=== PATIENT | female | born 1955 | race Caucasian/White ===

== ENCOUNTER 2021-05-04 11:12 | Day surgery (SDC) | payer MEDICARE, OTHER ==
[2021-05-04 12:03] VITALS: TEMP 98.2
[2021-05-04] MEDS ORDERED: LIDOCAINE 1% (10MG/ML) FOR IV START INTRADERMA ONE (12:10)
[2021-05-04] MEDS ORDERED: LACTATED RINGERS 1,000 ML IV ONE (12:11)
[2021-05-04] MEDS ORDERED: PROPOFOL 10 MG/ML 20 ML VIAL IV ONE (13:14)
[2021-05-04] MEDS ORDERED: LIDOCAINE 1% INJ 10MG/ML (20 ML MDV) ONE (13:14)
--- NOTE | 2021-05-04 13:41 | P.PCN ---
Date of Procedure: 05/04/21 Procedure(s) Performed: Brief history: Patient is a pleasant 65-year-old white female scheduled for an elective upper endoscopy as well as colonoscopy as a part of evaluation of GERD and screening for colon cancer. Her sister was diagnosed with colon cancer at age 50. He was diagnosed with colon cancer at age 75 Procedure performed: Esophagogastroduodenoscopy with biopsy Colonoscopy and biopsy Preoperative diagnosis: GERD Screening for colon cancer and family history of colon cancer Anesthesia: MAC Procedure: After informed consent was obtained from the patient was brought into the endoscopy unit and IV sedation was administered by anesthesia under continuous monitoring. Initially upper endoscopy was done. The Olympus GF 160 video endoscope was inserted inserted into the mouth and esophagus intubated without any difficulty and was gradually advanced into the stomach and duodenum and carefully examined. The bulb and second part of the duodenum appeared normal. The scope was then withdrawn into the stomach adequately insufflated with air and upon careful examination the antrum and body, cardia and fundus appeared normal. The scope was then withdrawn into the esophagus. Small hiatal hernia noted. The GE junction was located at 40 cm to the incisors. It appeared regular linear erosions and thickening of the esophageal folds consistent with LA grade B reflux esophagitis. Biopsies were done from the distal esophagus to rule out eosinophilic esophagitis. Rest of the esophagus appeared normal. Patient tolerated the procedure well. At this time the patient continued to remain sedation. Initial digital rectal examination was normal. Olympus CF 160 video colonoscope was then inserted into the rectum and gradually advanced to the cecum without any difficulty. Careful examination was performed as the scope was gradually being withdrawn. The prep was excellent. The cecum, ascending colon appeared normal. In the transverse colon there was a 3 mm sessile polyp that was removed by cold biopsy. Rest of the, transverse colon, descending colon, sigmoid colon and rectum appeared normal. Diffuse diverticulosis seen. Retroflexion was performed in the rectum and no lesions were noted. Patient tolerated the procedure well. Impression: 1. Upper endoscopy revealed small hiatal hernia and linear erosions with thickened folds in the distal esophagus consistent with LA grade B reflux esophagitis 2. Colonoscopy revealed a 3 mm sessile transverse colon polyp status post biopsy and scattered diffuse diverticulosis Recommendations: Findings of this examination were discussed with the patient as well as her family. She was advised to follow with the biopsy results. She will be started on Prilosec 20 mg daily for reflux esophagitis. She was advised to have a repeat screening colonoscopy every 5 years because of the strong family history of colon cancer
[2021-05-04 13:54] VITALS: RESP 20
[2021-05-04 14:10] VITALS: BP 181/90; PULSE 71
[2021-05-04] MEDS ORDERED: ONDANSETRON ODT 4 MG TAB PO ONE (14:30)
== END 2021-05-04 14:45 | disposition home or self-care (01) ==
LOC: ORWHC2ENDO 11:12
PROVIDERS: ATTEND Internal Medicine Gastroenterology
DX: Z12.11 Encounter for screening for malignant neoplasm of colon (principal); K21.00 Gastro-esophageal reflux disease with esophagitis, without bleeding; Z80.0 Family history of malignant neoplasm of digestive organs; K57.90 Diverticulosis of intestine, part unspecified, without perforation or abscess without bleeding; G43.909 Migraine, unspecified, not intractable, without status migrainosus
CPT/HCPCS: 88305; 45380; 43239; J2001; J2704

== ENCOUNTER 2021-06-01 14:00 | Emergency (ER) | payer MEDICARE ==
[2021-06-01 14:17] VITALS: RESP 18
--- NOTE | 2021-06-01 15:17 | XR ---
EXAMINATION TYPE: XR chest 2V DATE OF EXAM: 06/01/2021 COMPARISON: NONE TECHNIQUE: PA and lateral views submitted. HISTORY: Shortness of breath FINDINGS: There is diffuse interstitial pattern with perihilar infiltrates and left lower lobe subsegmental are a of consolidation. No sizable pleural effusion or pneumothorax. Underlying COPD suspected. IMPRESSION: 1. Correlate for interstitial pneumonitis with superimposed right perihilar and lower lobe pneumonia.
[2021-06-01] MEDS ORDERED: SODIUM CHLORIDE 0.9% 1,000 ML IV STA (16:45)
[2021-06-01] MEDS ORDERED: KETOROLAC 15 MG/ML 1 ML VIAL IVP STA (16:45)
[2021-06-01] MEDS ORDERED: DEXAMETHASONE SOD PHOSPHATE 10 MG/ML 1 ML VIAL IVP STA (16:46)
[2021-06-01] MEDS ORDERED: ONDANSETRON 4 MG/2 ML VIAL IVP STA (16:46)
--- NOTE | 2021-06-01 17:16 | ED ---
General Adult HPI - General Chief complaint: Recheck/Abnormal Lab/Rx Stated complaint: COVID+,SOB Time Seen by Provider: 06/01/21 16:11 Source: patient Mode of arrival: ambulatory Limitations: no limitations - History of Present Illness Initial comments: This 65-year-old female presents in the emergency department after testing positive for COVID-19 on [id number]. Patient states her symptoms have worsened since testing positive. Patient states she is prescribed azithromycin which has not seemed to help. Patient states she has had chills, sweats, headache and body aches for the last week. Patient states she has decreased appetite but is still able to drink fluids. Patient denies chest pain or vomiting. She states she has episodes of mild SOB but is not experiencing now. Patient states she is here because she would like to receive the antibody infusion if she qualifies. - Related Data Previous Rx's Medication Instructions Recorded Dexamethasone 6 mg PO DAILY #9 tablet 06/01/21 Allergies Allergy/AdvReac Type Severity Reaction Status Date / Time No Known Allergies Allergy Verified 06/01/21 14:13 Review of Systems ROS Statement: Those systems with pertinent positive or pertinent negative responses have been documented in the HPI. ROS Other: All systems not noted in ROS Statement are negative. Past Medical History Past Medical History: No Reported History History of Any Multi-Drug Resistant Organisms: None Reported Past Surgical History: Hysterectomy, Orthopedic Surgery Past Psychological History: No Psychological Hx Reported Smoking Status: Never smoker Past Alcohol Use History: None Reported Past Drug Use History: None Reported General Exam Limitations: no limitations General appearance: alert, in no apparent distress Respiratory exam: Present: normal lung sounds bilaterally. Absent: respiratory distress, wheezes, rales, rhonchi, stridor Cardiovascular Exam: Present: regular rate, normal rhythm, normal heart sounds. Absent: systolic murmur, diastolic murmur, rubs, gallop, clicks GI/Abdominal exam: Present: soft, normal bowel sounds. Absent: distended, tenderness, guarding, rebound, rigid Extremities exam: Present: normal inspection Neurological exam: Present: alert, oriented X3, CN II-XII intact Psychiatric exam: Present: normal mood Skin exam: Present: warm, dry, intact, normal color. Absent: rash Course Vital Signs 06/01/21 06/01/21 06/01/21 14:14 18:35 18:58 Temperature 98 F 99.2 F Pulse Rate 98 85 82 Respiratory 18 18 18 Rate Blood Pressure 108/69 135/78 O2 Sat by Pulse 100 94 L 92 L Oximetry Medical Decision Making - Medical Decision Making This 65-year-old female presents to emergency department today after being diagnosed with Covid 19 on [id number]. Patient states she has had headache, fatigue, body aches over the last week. She states she is here today for the antibody infusion. After Zofran, Toradol, fluids, patient states her headache has subsided and she feels much better. Receiving Clomid antibody infusion, patient states she feels well. She denies SOB or chest pain. Oxygen remains above 90%. Given strict return precautions. Decadron given for home. Advised to get pulse oximeter into return to emergency department if oxygen is less than 90%, chest pain occurs, cannot keep down liquids or symptoms worsen. Patient's sent home in stable condition. - Lab Data Lab Results 06/01/21 Range/Units 14:18 Coronavirus (PCR) Detected A (Not Detectd) Disposition Clinical Impression: COVID-19 Disposition: HOME SELF-CARE Condition: Stable Additional Instructions: Return to emergency department if symptoms worsen. Advised to get pulse oximeter from [facility] into return to emergency department with oxygen readings less than 90%. Can take zinc, vitamin D vitamin C [id number]. PRIMARY care provider in next 1-2 days. Prescriptions: Dexamethasone 6 mg PO DAILY #9 tablet Is patient prescribed a controlled substance at d/c from ED?: No Referrals: Aleta Castro MD [Primary Care Provider] - 1-2 days Time of Disposition: 19:10
[2021-06-01] MEDS ORDERED: BAMLANIVIMAB (EUA) 700 MG, ETESEVIMAB (EUA) 1,400 MG in SODIUM CHLORIDE 0.9% 100 ML IVPB ONE (17:30)
[2021-06-01] MEDS ORDERED: SODIUM CHLORIDE 0.9% 50 ML IVPB ONE (17:30)
[2021-06-01 18:35] VITALS: BP 135/78; TEMP 99.2
[2021-06-01 19:00] VITALS: PULSE 82
== END 2021-06-01 19:23 | disposition home or self-care (01) ==
LOC: EC 14:00
DX: U07.1 COVID-19 (principal)
CPT/HCPCS: 87635; 71046; 99284; 96374; 96375 ×2; 96361 ×2; J1100; J2405; J1885; J3490

== ENCOUNTER → 2022-08-18 | Outpatient (CLI) | payer MEDICARE, OTHER ==
--- NOTE | 2022-08-19 07:44 | XR ---
EXAMINATION TYPE: XR cervical spine w flex/ext DATE OF EXAM: 08/18/2022 COMPARISON: NONE HISTORY: 66-year-old female M50.10 CERVICAL DISC DISORDER W RADICULOPATHY TECHNIQUE: 8 views including flexion and extension FINDINGS: Uncovertebral joint and facet arthropathy especially mid to lower cervical spine. On the left, changes result in mild bony neuroforaminal narrowing at C6-C7 and C7-T1. On the right, changes result in mild bony neuroforaminal narrowing at C3-C4. No predental space widening or prevertebral soft tissue swelling. Moderate disc/endplate degenerative change particularly at C5-C7 levels. Alignment shows straightening of the normal cervical lordosis b ut otherwise maintained. Flexion extension views are limited by overlying shoulders. No obvious dynamic subluxation with flexi on and extension though assessment of the C5-C6 level and below is very limited on the flexion view. Normal odontoid view. IMPRESSION: Moderate spondylotic changes especially C5-C7 levels. Mild bony neuroforaminal narrowing on the left at C6-7 and C7-T1 and mild on the right at C3-C4. No malalignment. No obvious dynamic subluxation tho ugh with some limitation due to overlying shoulders.
--- NOTE | 2022-08-21 09:54 | MR ---
EXAMINATION TYPE: MR cervical spine wo con DATE OF EXAM: 08/18/2022 INDICATION: Patient age:Female; 66 years old; Reason for study: M50.10 CERVICAL DISC DISORDER W RADICULOPATHY,. MIGRAINES, BROKEN NECK 1999 COMPARISON: Plain film 08/18/2022. TECHNIQUE: Multi planar, multi sequence imaging was performed utilizing: T1-weighted, T2-weighted, an d turbo inversion recovery imaging of the cervical spine. IV Contrast: None FINDINGS: Alignment: The cervical vertebral bodies have preserved heights. Alignment is within normal limits gi marquita patient positioning. Bones: Scattered Modic endplate changes with osteophytes and disc space narrowing. Multilevel degener ative disc disease is noted and most pronounced at the C4-C7 vertebral levels. Cord: The spinal cord is unremarkable with regards to their signal intensity and morphology. Discs: Multilevel disc desiccation is present. C2-C3: No significant disc pathology. The spinal canal is patent. No neural foraminal stenosis. C3-C4: A disc osteophyte complex is present which minimally narrows the ventral subarachnoid space. Bilateral facet and uncovertebral joint arthropathy are present with mild right neural foraminal killian nosis. The left neural foramen is patent. C4-C5: A disc osteophyte complex is present with mild spinal canal stenosis. Bilateral facet and unc overtebral joint arthropathy are present with moderate right and mild left neural foraminal stenosis. C5-C6: A disc osteophyte complex is present with mild spinal canal stenosis. Bilateral facet and unc overtebral joint arthropathy are present with mild bilateral neural foraminal stenosis. C6-C7: A disc osteophyte complex is present with mild spinal canal stenosis. Bilateral facet and unc overtebral joint arthropathy are present with mild bilateral neural foraminal stenosis. C7-T1: No significant disc pathology. The spinal canal is patent. No neural foraminal stenosis. Other: Left thyroid nodule measuring up to 15 mm. IMPRESSION: 1. No evidence for disc herniation or significant spinal canal stenosis. 2. Multilevel disc degeneration with associated osteoarthritic changes or C4-C5, C5-6 and C6-C7 with mild spinal canal stenosis disc osteophyte complexes and neural foraminal stenosis.
== END | disposition home or self-care (01) ==
LOC: RADMRIMAIN 17:39
PROVIDERS: ATTEND Neurological Surgery
DX: M47.22 Other spondylosis with radiculopathy, cervical region (principal); M50.10 Cervical disc disorder with radiculopathy, unspecified cervical region; M99.71 Connective tissue and disc stenosis of intervertebral foramina of cervical region
CPT/HCPCS: 72052; 72141

== ENCOUNTER 2023-05-04 11:32 | Day surgery (SDC) | payer MEDICARE, OTHER ==
[2023-05-02 11:37] VITALS: BMI 27.0
[~2023-05-04 11:32] MED LIST: LIDOCAINE 1% (10MG/ML) FOR IV START INTRADERMA PRN
[2023-05-04 13:05] VITALS: RESP 16; TEMP 98.4
[2023-05-04] MEDS: LACTATED RINGERS 1,000 ML IV SCH ×2 (13:05→13:58)
[2023-05-04] MEDS ORDERED: LIDOCAINE 1% INJ 10MG/ML (20 ML MDV) ONE (14:00)
[2023-05-04] MEDS ORDERED: PROPOFOL 10 MG/ML 20 ML VIAL IV ONE (14:00)
--- NOTE | 2023-05-04 14:16 | P.PCN ---
Date of Procedure: 05/04/23 Procedure(s) Performed: BRIEF HISTORY: Patient is a 67-year-old, pleasant, white female scheduled for an upper endoscopy as part of evaluation of GERD and intermittent dysphagia to solids for the last 3 months duration. She was adamant is a 40 mg daily but stopped taking it a few months ago for insurance reasons and since then her symptoms have been progressively getting worse.. PROCEDURE PERFORMED: Esophagogastroduodenoscopy with biopsy and dilation. PREOPERATIVE DIAGNOSIS: Long-standing history of GERD/Intermittent dysphagia for solids.. IV sedation per anesthesia. PROCEDURE: After informed consent was obtained, the patient was brought into the endoscopy unit. IV sedation was administered by Anesthesia under continuous monitoring. Initially the Olympus GIF-140 video endoscope was inserted into the mouth. Esophagus intubated without any difficulty. It was gradually advanced into the stomach and duodenum and carefully examined. The bulb and the second part of the duodenum appeared normal. The scope at this time was withdrawn to the stomach, adequately insufflated with air, and upon careful examination, mucosa of the antrum, body, cardia and the fundus appeared normal. The scope was then withdrawn into the esophagus. Small hiatal hernia noted. The GE junction was located at 39 cm from the incisors. There was a distal esophageal Schatzki's ring identified that was dilated using 18-20 mm TTS balloon in a sequential fashion for 60 seconds. There were 2 superficial erosions at the GE junction consistent with LA grade B reflux esophagitis. The rest of the esophagus appeared normal. The patient tolerated the procedure well. IMPRESSION: 1. Distal esophageal Schatzki's ring status post balloon dilation using 18-20 mm TTS balloon as described above. 2. Small hiatal hernia and LA grade B reflux esophagitis. RECOMMENDATIONS: The findings of this examination were discussed with the patient as well as a family. She was advised to follow with the biopsy results. Remain on clear liquids for 2 hours. Resume omeprazole 20 mg daily and follow antrum reflux measures. Follow-up in the office in 6 weeks.
[2023-05-04 14:58] VITALS: BP 159/91; PULSE 82
== END 2023-05-04 14:50 | disposition home or self-care (01) ==
LOC: ORWHC2ENDO 11:32
PROVIDERS: ATTEND Internal Medicine Gastroenterology
DX: K21.00 Gastro-esophageal reflux disease with esophagitis, without bleeding (principal); K22.2 Esophageal obstruction; K44.9 Diaphragmatic hernia without obstruction or gangrene; I10 Essential (primary) hypertension; E78.5 Hyperlipidemia, unspecified; K21.9 Gastro-esophageal reflux disease without esophagitis; Z87.891 Personal history of nicotine dependence
CPT/HCPCS: 88305; 43239; 43249; J2001; J2704; C1726

== ENCOUNTER 2024-12-01 12:03 | Inpatient (IN) | payer MEDICARE, OTHER ==
[2024-12-01] MEDS: IV FLUID CONTINUATION 1,000 ML IV ONE (12:51)
[2024-12-01] MEDS: LIDOCAINE 2% (PF) 20 MG/ML 10 ML AMP SQ ONE (13:12)
[2024-12-01] MEDS: fentaNYL (PF) 50 MCG/1 ML VIAL IVP ONE (13:12)
[2024-12-01] MEDS: HEPARIN SODIUM 1,000 UN/ML (10ML VL) IVP ONE ×2 (13:18→13:28)
[2024-12-01] MEDS: CLOPIDOGREL 75 MG TAB PO ONE (13:23)
[2024-12-01] MEDS: IOPAMIDOL-370 100ML BTL INTRATHECA ONE (13:49)
[2024-12-01] MEDS: HEPARIN SODIUM,PORCINE 10,000 UNIT in SODIUM CHLORIDE 0.9% 1,000 ML IRRIGATION ONE (13:50)
[2024-12-01] MEDS: HEPARIN SODIUM,PORCINE (1 ML) 2,500 UNIT in SODIUM CHLORIDE 0.9% 250 ML IRRIGATION ONE (13:50)
[2024-12-01] MEDS ORDERED: RX INFO: IV CONTRAST WAS GIVEN 1 EACH MISC MISCELLANE PRN (13:54)
[2024-12-01] MEDS ORDERED: ZOLPIDEM 5 MG TAB PO PRN (13:54)
[2024-12-01] MEDS ORDERED: ATROPINE SULFATE 0.1 MG/ML 10ML SYRINGE IV PRN (13:54)
[2024-12-01] MEDS ORDERED: NITROGLYCERIN SL TABS 0.4 MG TAB SUBLINGUAL PRN (13:54)
[2024-12-01] MEDS ORDERED: MAG HYDROX/AL HYDROX/SIMETH 30 ML CUP PO PRN (13:54)
--- NOTE | 2024-12-01 14:02 | P.CARDCATH ---
Date of Procedure: 12/01/24 Description of Procedure: PERCUTANEOUS TRANSLUMINAL CORONARY ANGIOPLASTY CLINICAL INFORMATION: The patient is a 69-year-old female with a history of hypertension who presented to [facility] with symptoms of chest discomfort but no enzymatic changes. She recently had an MPI that showed ST se gment changes but no abnormality on her nuclear scan. She was evaluated by Dr. Marie and underwent coronary angiography that showed calcified coronary arteries with significant disease involving the proximal RCA and the OM1 with calcified coronary arteries. Recommendations were made regarding angioplasty and stenting. The procedure as well as the risks and the complications were discussed with the patient who was in full understanding and agreement. PROCEDURE: The patient was brought to the [facility] after receiving fentanyl and Benadryl and using guidewire exchange technique the 6 Kazakh sheath in the right radial artery was exchanged to a new 6 Kazakh sheath. A 6 Kazakh FL 4 guiding catheter was introduced into the system. After cannulating the right coronary ostium, a 0.014 BMW J-wire was advanced across the lesion and positioned distally. A [place] eye IVUS was introduced and images showed a calcified vessel with diameter measuring 4.5 to 5.2 mm in diameter. Following that a 4.5 x 28 mm Xience Skypoint stent was deployed. It was dilated at 16 taqueria. Repeat IVUS imaging was performed that showed mild under deployment in the midsegment of the stent. A 5.0 x 15 mm NC trek balloon was advanced and 2 inflations at 12 taqueria was done. After the last inflation, after appropriate wait, the balloon and the guidewire were withdrawn back into the guiding catheter. Images were obtained and repeated. Those images reveal stable successful stenting. At that point, the guiding catheter, the balloon, and guidewire were removed. The sheath was removed. Hemostasis was obtained with deployment of a TR band. There were no immediate complications. The patient was returned to the room in stable condition. Of note, the patient received 5500 units of heparin as well as Plavix. His ACT was followed. There was no immediate complications. She had no significant EKG changes or chest discomfort. RESULTS: Successful stenting of the proximal RCA with reduction of stenosis from 80% eccentric % to less than 5% with IVUS imaging and LYNNE-3 flow. RECOMMENDATIONS: The patient will continue on aspirin and clopidogrel for 6 months in addition to aggressive coronary risks modifications, maintaining LDL below 70 mg/dL. She will be scheduled to undergo staged stenting of the OM1. The findings and recommendations were discussed with the patient and the family, they are in full understanding and agreement. Duration of sedation: 31 minutes
[2024-12-01] MEDS: ASPIRIN 81 MG PO STA (15:25)
[2024-12-01] MEDS: HYDROcodone/APAP 5-325MG 1 EACH TAB PO PRN (17:41)
[2024-12-01] MEDS: ATORVASTATIN 80 MG TAB PO SCH (20:00)
[2024-12-01] MEDS: METOPROLOL TARTRATE 25 MG TAB PO SCH (20:00)
[2024-12-02 04:55] VITALS: RESP 18
[2024-12-02 08:23] LABS: African American GFR (CKD) >90 (>60 ml/min/1.73 sqM); Anion Gap 10 mmol/L; Blood Urea Nitrogen 16 mg/dL (7-17); Calcium 9.5 mg/dL (8.4-10.2); Carbon Dioxide 25 mmol/L (22-30); Chloride 107 mmol/L (98-107); Glucose 90 mg/dL (74-99); Non-African American GFR(CKD) 79 (>60 ml/min/1.73 sqM); Potassium 4.2 mmol/L (3.5-5.1); Sodium 142 mmol/L (137-145)
[2024-12-02] MEDS: CLOPIDOGREL 75 MG TAB PO SCH (08:42)
[2024-12-02] MEDS: LOSARTAN 50 MG TAB PO SCH (08:42)
[2024-12-02] MEDS: ASPIRIN 81 MG PO SCH (08:42)
[2024-12-02 10:44] VITALS: PULSE 83
[2024-12-02 10:45] VITALS: BP 146/72; TEMP 98.1
[2024-12-02 10:47] VITALS: BMI 28.4
--- NOTE | 2024-12-02 14:50 | P.PN ---
Subjective Progress Note Date: 12/02/24 This is a 69-year-old female patient of Dr. Marie with past medical history of intermediate coronary artery disease, hypertension, dyslipidemia. Patient initially presented to [facility] with complaints of chest pain. She had a recent MPI that showed ST segment changes but no abnormality on her nuclear scan. She underwent coronary angiography that showed calcified coronary arteries with significant disease involving the proximal RCA and the OM1. It was recommended that patient transferred to [facility] for angioplasty and stenting. Yesterday, Dr. Zaragoza performed successful stenting of the proximal RCA with plan to continue patient on aspirin and Plavix for 6 months in addition to aggressive coronary artery risk factor modification. She will be scheduled for staged stenting of the OM1. Patient denies chest pain, chest pressure or chest tightness at this time. No shortness of breath. She has been ambulating with no lightheadedness or dizziness. Blood pressure 146/72, heart rate 83, pulse ox 96% on room air. Creatinine 0.77, potassium 4.2. Physical examination: Gen: This is 69-year-old female in no acute distress VS: reviewed HEENT: Head is atraumatic, normocephalic. Pupils equal, round. Sclerae is anicteric. NECK: Supple. No JVD. LUNGS: Clear to auscultation. No wheezes or rhonchi. No intercostal retractions. HEART: Regular rate and rhythm. No murmur. ABDOMEN: Soft No tenderness. EXTREMITIES: No pedal edema. No calf tenderness. NEUROLOGICAL: Patient is awake, alert and oriented x3. Assessment: Coronary artery disease status post stent to the proximal RCA with plan for staged stenting of the OM1 Hypertension Dyslipidemia Plan: Continue current cardiac medications: Losartan 100 mg daily, Plavix 75 mg daily, aspirin 81 mg daily, Lopressor 25 mg twice daily, Nitrostat Prescription for new cardiac medications have been sent to her pharmacy Patient is cleared for discharge from a cardiology perspective. Patient will follow-up in the office in 1 to 2 weeks. Nurse practitioner note has been reviewed, I agree with documented findings and plan of care. Patient was seen and examined. Objective - Vital Signs Vital signs: Vital Signs Temp 98.0 F 12/02/24 04:54 Pulse 69 12/02/24 04:54 Resp 18 12/02/24 04:54 BP 120/72 12/02/24 04:54 Pulse Ox 96 12/02/24 04:54 FiO2 Intake & Output 12/01/24 12/02/24 12/02/24 18:59 06:59 18:59 Intake Total 695 450 240 Balance 695 450 240 Weight 77.111 kg 77.6 kg Intake: IV 500 Intake, IV Titration 75 450 Amount IV Fluid Continuation 1, 75 450 000 ml @ 0 mls/hr IV .STK -MED ONE Rx#:[id number] Oral 120 240 Other: Voiding Method Toilet - Labs CBC & Chem 7: 12/02/24 06:51
--- NOTE | 2024-12-02 18:41 | P.HPIM ---
History of Present Illness H&P Date: 12/02/24 Chief Complaint: Coronary artery disease status post PCI of the RCA This is a history and physical and discharge summary HISTORY OF PRESENT ILLNESS: This is a 69-year-old female with a by patient with a previous medical history significant for hypertension and hypertensive heart vascular disease, mixed hyperlipidemia, migraine headache, spondylosis of the cervical spine, insomnia, remote tobacco use and dependence, patient presented to the emergency department initially [facility] with dyspnea on exertion associated with left-sided chest pain that radiated to the left shoulder down to the left arm associated with significant shortness of breath with activity, patient had an EKG that did show some nonspecific changes, her cardiac enzymes w ere negative at that time, but because of her symptoms and her risk factors she was admitted to the hospital and underwent left heart catheterization that showed 85% stenosis of the RCA and another stenosis of the obtuse marginal branch 1, she was transported to [facility] and underwent PCI of the RCA by Dr. Zaragoza and she is scheduled to go for staged angioplasty of the OM1 hopefully the next 2 weeks, patient was admitted to the hospital and she was started on aspirin 81 mg once every day, Plavix 75 mg once every day, atorvastatin 80 mg once every day, Zetia 10 mg once every day along with her Repatha 140 mg subcutaneously every 2 weeks, and it was recommended for aggressive risk factor modifications and total lifestyle changes, she will be scheduled with Dr. Zaragoza as an outpatient for staged angioplasty of the OM1. Patient was seen sitting up in bed in no apparent distress, she is ambulating very well, she was complaining of minimal pain in the right wrist after her angioplasty, but she is doing better today, she has no chest pain or shortness of breath, she is feeling a lot better, she will be discharged home today and follow-up with me as an outpatient next week. REVIEW OF SYSTEMS: Constitutional: No documented fever, no chills, no night sweats. No weight change. No weakness, fatigue or lethargy. No daytime sleepiness. EENT: No headache. No blurred vision or double vision, no loss of vision. No loss of Hearing, no ringing in the ears, no dizziness. No nasal drainage or congestion. No epistaxis. No sore throat. Lungs: Positive for shortness of breath, no cough, no sputum production. No wheezing. Reports dyspnea with activity. Cardiovascular: Positive for chest pain, no lower extremity edema. No palpitations. No paroxysmal nocturnal dyspnea. No orthopnea. No lightheadedness or dizziness. No syncopal episodes. Abdominal: Reports abdominal pain. No nausea, vomiting. No diarrhea. No constipation. No bloody or tarry stools reports loss of appetite. Genitourinary: No dysuria, increased frequency, urgency. No urinary retention. Musculoskeletal: No myalgias. No muscle weakness, no gait dysfunction, no frequent falls. No back pain. No neck pain. Integumentary: No wounds, no lesions. No rash or pruritus. No unusual bruisi ng. No change in hair or nails. Neurologic: No aphasia. No facial droop. No change in mentation. No head injury. No headache. No paralysis. No paresthesia. Psychiatric: No depression. No anxiety. No mood swings. Endocrine: No abnormal blood sugars. No weight change. PAST MEDICAL HISTORY: Hypertension and hypertensive cardiovascular disease. Mixed hyperlipidemia. Coronary artery disease of [place] arteries Migraine headaches. Spondylosis of the cervical spine. Insomnia. Anxiety. PAST SURGICAL HISTORY: Left heart catheterization with PCI of the RCA 12/01/2024 Tendon repair of the left index finger. EGD/colonoscopy 05/04/2023. Hysterectomy. SOCIAL HISTORY: Patient used to smoke in the past about a pack every day and she quit about 7 years ago, she does drink alcohol socially, she denies any drug use or abuse, she lives with her significant other. FAMILY HISTORY: Father at the age of 75 from colon cancer with mets to the liver, mother at the age of 88 from congestive heart failure, patient has 3 sisters 1 sister with colon cancer and the other 2 are fine, patient has 3 brothers 1 with a brain cancer the other 2 are fine patient has 2 daughters alive and well. PHYSICAL EXAMINATION: General: 69-year-old female laying down in bed in no apparent distres s. HEENT: Head is atraumatic, normocephalic, pupils were equal round reactive to light and recommendation, extraocular muscle movement were intact, sclera nonicteric, conjunctivae were pale, mucous membranes of the mouth are somewhat dry. Neck: Supple, no JVP, normal carotid upstroke bilaterally, no lymphadenopathy. Chest: Decreased breath sounds at the bases, few rhonchi, no expiratory wheezes, no chest wall tenderness, no intercostal retractions. Heart: First heart sound is normal, second heart sounds normal there is no gallop or murmur no rubs or heaves. Abdomen: Soft, nontender, nondistended, positive bowel sounds. Extremities: There is no edema no calf tenderness DP +2 bilaterally. Neurologic examination: Patient is awake alert and oriented x3, cranial nerves II-12 appear grossly intact, muscle power were 5 out of 5 in upper extremities and 5 out of 5 in bilateral lower extremities, deep tendon reflexes normal bilaterally. ASSESSMENT AND PLAN: 1. Coronary artery disease status post PCI of the RCA continue patient on aspirin 81 g once every day, Plavix 75 mg once every day, atorvastatin 80 mg once every day, Zetia 10 mg once every day, she is to resume her Repatha 140 mg subcutaneously every 2 weeks, keep LDL cholesterol less than 50 over the time, patient is scheduled to go for staged angioplasty of the obtuse marginal branch #1 hopefully the next to be 2 weeks. Patient is medically stable for discharge she can follow-up with me as an outpatient in the next few days. She will follow-up with cardiology next week. 2. Hypertension and hypertensive cardiovascular disease. Continue patient on metoprolol 25 mg orally twice every day, losartan 100 mg orally once every day, monitor the patient blood pressure very closely. 3. Mixed hyperlipidemia. Continue atorvastatin 80 mg once every day, continue Zetia 10 mg once every day and Repatha 140 mg subcutaneously every 2 weeks keep LDL cholesterol less than 50. 4. History of migraine headaches avoid triptans for now. May use Nurtec or Ubrelvy as needed. 5. History of insomnia continue zolpidem 5 mg at bedtime as needed. 6. DVT prophylaxis not needed. 7. GI prophylaxis not needed. 8. Admitted to inpatient. Estimated length of stay 2 midnights. 9. Full code. 10. Patient was discharged in stable condition she has to follow-up with me as an outpatient in the next few days. Follow-up with cardiology for staged angioplasty of OM1. Past Medical History Past Medical History: GERD/Reflux, Hyperlipidemia, Hypertension, Osteoarthritis (OA) Additional Past Medical History / Comment(s): Bag around heart thick, treated with antibiotics for valve problem and ok now. Migraines. History of Any Multi-Drug Resistant Organisms: None Reported Past Surgical History: Hysterectomy, Orthopedic Surgery Additional Past Surgical History / Comment(s): Left finger surgery. Past Anesthesia/Blood Transfusion Reactions: No Reported Reaction Past Psychological History: No Psychological Hx Reported Smoking Status: Former smoker Past Alcohol Use History: None Reported Additional Past Alcohol Use History / Comment(s): Quit smoking 10 yrs ago. Past Drug Use History: None Reported - Past Family History Father Family Medical History: Cancer Mother History Unknown: Yes Family Medical History: Unable to Obtain Medications and Allergies Home Medications Medication Instructions Recorded Confirmed Type Atorvastatin [Lipitor] 80 mg PO DAILY 12/01/24 12/01/24 History Baclofen 5 mg PO DAILY PRN 12/01/24 12/01/24 History Evolocumab [Repatha Sureclick] 140 mg SQ Q14D 12/01/24 12/01/24 History Sertraline [Zoloft] 200 mg PO HS 12/01/24 12/01/24 History Aspirin 81 mg PO DAILY tab 12/02/24 Rx Clopidogrel [Plavix] 75 mg PO DAILY #90 tab 12/02/24 Rx Losartan [Cozaar] 100 mg PO DAILY #90 tab 12/02/24 Rx Metoprolol Tartrate [Lopressor] 25 mg PO BID #180 tab 12/02/24 Rx Nitroglycerin Sl Tabs [Nitrostat] 0.4 mg SUBLINGUAL Q5M PRN #25 tab 12/02/24 Rx Allergies Allergy/AdvReac Type Severity Reaction Status Date / Time No Known Allergies Allergy Verified 12/01/24 20:09 Physical Exam Vitals: Vital Signs Temp Pulse Pulse Pulse Resp BP Pulse Ox 12/02/24 04:54 98.0 F 69 18 120/72 96 12/01/24 23:50 97.9 F 64 16 128/75 97 12/01/24 19:30 97.9 F 72 16 150/89 98 12/01/24 17:36 68 144/79 97 12/01/24 16:36 70 145/80 97 12/01/24 16:30 68 18 12/01/24 16:05 65 145/78 12/01/24 15:45 63 18 165/86 98 12/01/24 15:06 60 18 163/91 98 12/01/24 14:36 64 18 168/104 98 12/01/24 14:21 61 18 178/90 97 12/01/24 14:06 62 18 172/98 97 12/01/24 13:51 62 16 172/98 96 Intake and Output 12/01/24 12/02/24 12/02/24 22:59 06:59 14:59 Intake Total 195 450 240 Balance 195 450 240 Intake: Intake, IV Titration 75 450 Amount IV Fluid Continuation 1, 75 450 000 ml @ 0 mls/hr IV .STK -MED ONE Rx#:[id number] Oral 120 240 Other: Voiding Method Toilet Toilet Weight 77.111 kg 77.6 kg Results CBC & Chem 7: 12/02/24 06:51 Thrombosis Risk Factor Assmnt - Choose All That Apply Each Factor Represents 1 point: Obesity (BMI >25) Each Risk Factor Represents 2 Points: Age 61-74 years Other congenital or acquired thrombophilia - If yes, enter type in comment: No Thrombosis Risk Factor Assessment Total Risk Factor Score: 3 Thrombosis Risk Factor Assessment Level: Moderate Risk
== END 2024-12-02 11:19 | disposition home or self-care (01) | DRG 322 ==
LOC: 3SCARD 12:27
PROVIDERS: ADMIT Internal Medicine; ATTEND Internal Medicine
PROC: 027034Z Dilation of Coronary Artery, One Artery with Drug-eluting Intraluminal Device, Percutaneous Approach (ICD-10-PCS; principal; 2024-12-01 14:30)
DX: I25.10 Atherosclerotic heart disease of native coronary artery without angina pectoris (principal); E78.2 Mixed hyperlipidemia; I11.9 Hypertensive heart disease without heart failure; G43.909 Migraine, unspecified, not intractable, without status migrainosus; M47.812 Spondylosis without myelopathy or radiculopathy, cervical region; G47.00 Insomnia, unspecified; F41.9 Anxiety disorder, unspecified; Z87.891 Personal history of nicotine dependence; Z82.49 Family history of ischemic heart disease and other diseases of the circulatory system; Z79.02 Long term (current) use of antithrombotics/antiplatelets; Z79.82 Long term (current) use of aspirin; Z79.899 Other long term (current) drug therapy
CPT/HCPCS: 80048; 92978

== ENCOUNTER 2024-12-04 11:27 | Observation (INO) | payer MEDICARE ==
--- NOTE | 2024-12-04 11:46 | ED ---
General Adult HPI - General Chief complaint: Chest Pain Stated complaint: Chest Pain,Jaw Pain,SoB Time Seen by Provider: 12/04/24 11:30 Source: patient, EMS, RN notes reviewed, old records reviewed Mode of arrival: EMS Limitations: no limitations - History of Present Illness Initial comments: This is a 69-year-old female who presents to the emergency department complaining that she woke up this morning after having been discharged from the hospital a couple days ago after getting a cardiac stent. Patient states she woke up with dizziness and if she does not hold onto something she is afraid she is can to fall over. Patient also complains of some right sided facial and head pain. Patient states it has been pretty consistent since she got up this morning. Patient denies an actual headache however. Patient denies numbness weakness. Patient states she has had some chest pain that only lasts a minute or 2. Patient denies any fever or chills. Patient states she has felt a little short of breath. - Related Data Home Medications Medication Instructions Recorded Confirmed Atorvastatin [Lipitor] 80 mg PO DAILY 12/01/24 12/01/24 Baclofen 5 mg PO DAILY PRN 12/01/24 12/01/24 Evolocumab [Repatha Sureclick] 140 mg SQ Q14D 12/01/24 12/01/24 Sertraline [Zoloft] 200 mg PO HS 12/01/24 12/01/24 Previous Rx's Medication Instructions Recorded Aspirin 81 mg PO DAILY tab 12/02/24 Clopidogrel [Plavix] 75 mg PO DAILY #90 tab 12/02/24 Losartan [Cozaar] 100 mg PO DAILY #90 tab 12/02/24 Metoprolol Tartrate [Lopressor] 25 mg PO BID #180 tab 12/02/24 Nitroglycerin Sl Tabs [Nitrostat] 0.4 mg SUBLINGUAL Q5M PRN #25 tab 12/02/24 Allergies Allergy/AdvReac Type Severity Reaction Status Date / Time No Known Allergies Allergy Verified 12/04/24 11:35 Review of Systems ROS Statement: Those systems with pertinent positive or pertinent negative responses have been documented in the HPI. ROS Other: All systems not noted in ROS Statement are negative. Past Medical History Past Medical History: GERD/Reflux, Hyperlipidemia, Hypertension, Osteoarthritis (OA) Additional Past Medical History / Comment(s): Bag around heart thick, treated with antibiotics for valve problem and ok now. Migraines. History of Any Multi-Drug Resistant Organisms: None Reported Past Surgical History: Hysterectomy, Orthopedic Surgery Additional Past Surgical History / Comment(s): Left finger surgery. Past Anesthesia/Blood Transfusion Reactions: No Reported Reaction Past Psychological History: No Psychological Hx Reported Smoking Status: Former smoker Past Alcohol Use History: None Reported Past Drug Use History: None Reported - Past Family History Father Family Medical History: Cancer Mother History Unknown: Yes Family Medical History: Unable to Obtain General Exam - General Exam Comments Initial Comments: GENERAL: Patient is well-developed and well-nourished. Patient is nontoxic and well- hydrated and is in mild distress. ENT: Neck is soft and supple. No significant lymphadenopathy is noted. Oropharynx is clear. Moist mucous membranes. Neck has full range of motion without eliciting any pain. EYES: The sclera were anicteric and conjunctiva were pink and moist. Extraocular movements were intact and pupils were equal round and reactive to light. Eyelids were unremarkable. PULMONARY: Unlabored respirations. Good breath sounds bilaterally. No audible rales rhonchi or wheezing was noted. CARDIOVASCULAR: There is a regular rate and rhythm without any murmurs gallops or rubs. ABDOMEN: Soft and nontender with normal bowel sounds. SKIN: Skin is clear with no lesions or rashes and otherwise unremarkable. NEUROLOGIC: Patient is alert and oriented x3. Cranial nerves II through XII are grossly intact. Motor and sensory are also intact. Normal speech, volume and content. Symmetrical smile. Finger-nose was normal bilaterally MUSCULOSKELETAL: Normal extremities with adequate strength and full range of motion. No lower extremity swelling or edema. No calf tenderness. LYMPHATICS: No significant lymphadenopathy is noted PSYCHIATRIC: Normal psychiatric evaluation. Limitations: no limitations Course Vital Signs 12/04/24 12/04/24 11:29 12:37 Temperature 97.9 F Pulse Rate 74 70 Respiratory 18 18 Rate Blood Pressure 134/82 146/78 O2 Sat by Pulse 100 97 Oximetry Medical Decision Making - Medical Decision Making EKG is interpreted by myself and EKG shows a sinus rhythm at 75 bpm MN interval is 190 QRS is 85 QT interval 399 QTc is 428. Patient's EKG shows no ST segment elevation or depression. Was pt. sent in by a medical professional or institution (, PA, COIN ROLLING MACHINE OPERATOR, urgent care, hospital, or [place] health care facility...) When possible be specific @ -No Did you speak to anyone other than the patient for history (EMS, parent, family, police, friend...)? What history was obtained from this source @ -No Did you review nursing and triage notes (agree or disagree)? Why? @ -I reviewed and agree with nursing and triage notes Were old charts reviewed (outside hosp., previous admission, EMS record, old EKG, old radiological studies, urgent care reports/EKG's, [place] health care facility records)? Report findings @ -No old charts were reviewed Differential Diagnosis? @ -Differential Dizziness: Benign paroxysmal positional Vertigo, Meniere's disease, otitis media, acoustic neuroma, vertebrobasilar insufficiency, cerebellar stroke, encephalitis, hypovolemic, arrhythmia, coronary artery syndrome, anemia, this is not meant to be an all-inclusive list Differential Chest Pain: Stable Angina, Unstable Angina, STEMI, NSTEMI Aortic Dissection, Pneumothorax, Musculoskeletal, Esophageal Spasm GERD, Cholecystitis, Pancreatitis, Zoster, this is not meant to be an all-inclusive list. EKG interpreted by me (3pts min.). @ -As above X-rays interpreted by me (1pt min.). @ -Chest x-ray shows no acute abnormality CT interpreted by me (1pt min.). @ -CT of the brain and CT angiogram of the head and neck were both negative. U/S interpreted by me (1pt. min.). @ -None done What testing was considered but not performed or refused? (CT, X-rays, U/S, labs)? Why? @ -None What meds were considered but not given or refused? Why? @ -None Did you discuss the management of the patient with other professionals (professionals i.e. , PA, COIN ROLLING MACHINE OPERATOR, lab, RT, psych nurse, school social worker, health advisor, teacher, attendance officer, nurse case manager)? Give summary @ -I spoke with Dr. Castro he agreed to admit the patient Was smoking cessation discussed for >3mins.? @ -No Was critical care preformed (if so, how long)? @ -No Were there social determinants of health that impacted care today? How? (Homel essness, low income, unemployed, alcoholism, drug addiction, transportation, low edu. Level, literacy, decrease access to med. care, halfway, rehab)? @ -No Was there de-escalation of care discussed even if they declined (Discuss DNR or withdrawal of care, Hospice)? DNR status @ -No What co-morbidities impacted this encounter? (DM, HTN, Smoking, COPD, CAD, Cancer, CVA, ARF, Chemo, Hep., AIDS, mental health diagnosis, sleep apnea, morbid obesity)? @ -None Was patient admitted / discharged? Hospital course, mention meds given and route, prescriptions, significant lab abnormalities, going to OR and other pertinent info. @ -Patient was given Antivert and Valium for symptoms of what appeared to be ve rtigo and she did have improvement of her symptoms. Patient will be admitted for elevated troponin to Dr. Castro with a cardiology consult Undiagnosed new problem with uncertain prognosis? @ -No Drug Therapy requiring intensive monitoring for toxicity (Heparin, Nitro, Insulin, Cardizem)? @ -No Were any procedures done? @ -No Diagnosis/symptom? @ -Chest pain Acute, or Chronic, or Acute on Chronic? @ -Acute Uncomplicated (without systemic symptoms) or Complicated (systemic symptoms)? @ -Complicated Side effects of treatment? @ -No Exacerbation, Progression, or Severe Exacerbation? @ -No Poses a threat to life or bodily function? How? (Chest pain, [place], [place], pneumonia, PE, COPD, DKA, ARF, appy, cholecystitis, CVA, Diverticulitis, Homicidal, Suicidal, threat to staff... and all critical care pts) @ -Yes this could lead to an [place] and endorgan dysfunction Diagnosis/symptom? @ -Vertigo Acute, or Chronic, or Acute on Chronic? @ -Acute Uncomplicated (without systemic symptoms) or Complicated (systemic symptoms)? @ -Complicated Side effects of treatment? @ -None Exacerbation, Progression, or Severe Exacerbation] @ -No Poses a threat to life or bodily function? @ -No - Lab Data Result diagrams: 12/04/24 11:49 12/04/24 11:49 Lab Results 12/04/24 12/04/24 12/04/24 Range/Units 11:49 11:49 11:49 WBC 7.00 (4.50-10.00) 10*3/uL RBC 4.44 (4.10-5.20) 10*6/uL Hgb 13.1 (12.0-15.0) g/dL Hct 38.9 (37.2-46.3) % MCV 87.6 (80.0-97.0) fL MCH 29.5 (27.0-32.0) pg MCHC 33.7 (32.0-37.0) g/dL Plt Count 219 (140-440) 10*3/uL MPV 10.3 (9.5-12.2) fL Immature Gran % (Auto) 0.3 % Neutrophils % 65.6 % Lymphocytes % 25.4 % Monocytes % 6.0 % Eosinophils % 2.0 % Basophils % 0.7 % Immature Gran # 0.02 (0.00-0.04) 10*3/uL Neutrophils # 4.59 (1.80-7.70) 10*3/uL Lymphocytes # 1.78 (0.90-5.00) 10*3/uL Monocytes # 0.42 (0.20-1.00) 10*3/uL Eosinophils # 0.14 (0.04-0.35) 10*3/uL Basophils # 0.05 (0.00-0.10) 10*3/uL PT 10.4 (10.0-12.5) sec INR 0.9 (<1.2) APTT 22.5 (22.0-30.0) sec Sodium 142 (137-145) mmol/L Potassium 4.2 (3.5-5.1) mmol/L Chloride 108 H (98-107) mmol/L Carbon Dioxide 21 L (22-30) mmol/L Anion Gap 13 mmol/L BUN 32 H (7-17) mg/dL Creatinine 0.78 (0.52-1.04) mg/dL Est GFR (CKD-EPI)AfAm >90 (>60 ml/min/1.73 sqM) Est GFR (CKD-EPI)NonAf 78 (>60 ml/min/1.73 sqM) Glucose 92 (74-99) mg/dL Calcium 9.6 (8.4-10.2) mg/dL Magnesium 1.9 (1.6-2.3) mg/dL Total Bilirubin 0.9 (0.2-1.3) mg/dL AST 41 H (14-36) U/L ALT 42 H (4-34) U/L Alkaline Phosphatase 109 (38-126) U/L Troponin I (0.000-0.034) ng/mL Total Protein 6.6 (6.3-8.2) g/dL Albumin 4.4 (3.5-5.0) g/dL 12/04/24 Range/Units 11:49 WBC (4.50-10.00) 10*3/uL RBC (4.10-5.20) 10*6/uL Hgb (12.0-15.0) g/dL Hct (37.2-46.3) % MCV (80.0-97.0) fL MCH (27.0-32.0) pg MCHC (32.0-37.0) g/dL Plt Count (140-440) 10*3/uL MPV (9.5-12.2) fL Immature Gran % (Auto) % Neutrophils % % Lymphocytes % % Monocytes % % Eosinophils % % Basophils % % Immature Gran # (0.00-0.04) 10*3/uL Neutrophils # (1.80-7.70) 10*3/uL Lymphocytes # (0.90-5.00) 10*3/uL Monocytes # (0.20-1.00) 10*3/uL Eosinophils # (0.04-0.35) 10*3/uL Basophils # (0.00-0.10) 10*3/uL PT (10.0-12.5) sec INR (<1.2) APTT (22.0-30.0) sec Sodium (137-145) mmol/L Potassium (3.5-5.1) mmol/L Chloride (98-107) mmol/L Carbon Dioxide (22-30) mmol/L Anion Gap mmol/L BUN (7-17) mg/dL Creatinine (0.52-1.04) mg/dL Est GFR (CKD-EPI)AfAm (>60 ml/min/1.73 sqM) Est GFR (CKD-EPI)NonAf (>60 ml/min/1.73 sqM) Glucose (74-99) mg/dL Calcium (8.4-10.2) mg/dL Magnesium (1.6-2.3) mg/dL Total Bilirubin (0.2-1.3) mg/dL AST (14-36) U/L ALT (4-34) U/L Alkaline Phosphatase (38-126) U/L Troponin I 0.103 H* (0.000-0.034) ng/mL Total Protein (6.3-8.2) g/dL Albumin (3.5-5.0) g/dL Disposition Clinical Impression: Chest pain, Vertigo Disposition: ADMITTED IP TO THIS HOSP Referrals: Aleta Castro MD [Primary Care Provider] - 1-2 days Time of Disposition: 14:03
[2024-12-04] MEDS: MECLIZINE 25 MG TAB PO STA (11:52)
[2024-12-04 11:53] LABS: Basophils # (A) 0.05 10*3/uL (0.00-0.10); Basophils % (A) 0.7 %; Eosinophils # (A) 0.14 10*3/uL (0.04-0.35); Eosinophils % (A) 2.0 %; HCT 38.9 % (37.2-46.3); HGB 13.1 g/dL (12.0-15.0); Lymphocytes # (A) 1.78 10*3/uL (0.90-5.00); Lymphocytes % (A) 25.4 %; MCH 29.5 pg (27.0-32.0); MCHC 33.7 g/dL (32.0-37.0); MCV 87.6 fL (80.0-97.0); Monocytes # (A) 0.42 10*3/uL (0.20-1.00); Monocytes % (A) 6.0 %; Neutrophils # (A) 4.59 10*3/uL (1.80-7.70); Neutrophils % (A) 65.6 %; Platelet Count 219 10*3/uL (140-440); RBC 4.44 10*6/uL (4.10-5.20); RDW 13.2 % (11.5-14.5); WBC 7.00 10*3/uL (4.50-10.00)
[2024-12-04] MEDS: SODIUM CHLORIDE 0.9% 500 ML 500 ML IV ONE (11:53)
[2024-12-04 12:10] LABS: INR 0.9 (<1.2); Partial Thromboplastin Time 22.5 sec (22.0-30.0); Prothrombin Time 10.4 sec (10.0-12.5)
[2024-12-04 12:11] LABS: ALT 42 U/L (4-34); AST 41 U/L (14-36); African American GFR (CKD) >90 (>60 ml/min/1.73 sqM); Albumin 4.4 g/dL (3.5-5.0); Alkaline Phosphatase 109 U/L (38-126); Anion Gap 13 mmol/L; Blood Urea Nitrogen 32 mg/dL (7-17); Calcium 9.6 mg/dL (8.4-10.2); Carbon Dioxide 21 mmol/L (22-30); Chloride 108 mmol/L (98-107); Glucose 92 mg/dL (74-99); Magnesium 1.9 mg/dL (1.6-2.3); Non-African American GFR(CKD) 78 (>60 ml/min/1.73 sqM); Potassium 4.2 mmol/L (3.5-5.1); Sodium 142 mmol/L (137-145); Total Protein 6.6 g/dL (6.3-8.2)
--- NOTE | 2024-12-04 12:59 | XR ---
EXAMINATION TYPE: XR chest 2V DATE OF EXAM: 12/04/2024 12:50 PM COMPARISON: 06/01/2021 CLINICAL INDICATION: Female, 69 years old with history of Chest Pain: Shortness of breath TECHNIQUE: XR chest 2V views of the chest are obtained. FINDINGS: Scattered senescent parenchymal changes noted. Hyperinflation compatible with COPD. No evidence for infiltrate. No evidence for atelectasis. Heart size is stable. Mediastinal structures are stable and grossly unremarkable. No evidence for hilar prominence. Degenerative changes dorsal spine. IMPRESSION: 1. No evidence for acute pulmonary disease. [facility], , 12/04/2024 12:57 PM
--- NOTE | 2024-12-04 12:59 | CT ---
EXAMINATION TYPE: CT brain wo con DATE OF EXAM: 12/04/2024 COMPARISON: None CLINICAL INDICATION: Female, 69 years old with history of Vertigo; PHH, Vertigo, CP, Rt jaw pain. Sandip nt placed 2 days ago, has another one scheduled in a week. TECHNIQUE: CT scan of the head is performed without contrast. CT DLP: 1157.[address] CTDI: mGy Automated exposure control for dose reduction was used. FINDINGS: There is no acute intracranial hemorrhage or midline shift identified. There is diffuse v entricular and sulcal prominence consistent with diffuse age-related cerebral atrophy. There is low- attenuation in the periventricular white matter consistent with chronic small vessel ischemic change. The globes are intact and the visualized sinuses are clear. IMPRESSION: No acute intracranial hemorrhage or midline shift. There is diffuse age-related cerebra l atrophy and chronic small vessel ischemic change noted. [facility], , 12/04/2024 12:56 PM
--- NOTE | 2024-12-04 13:01 | CT ---
EXAMINATION TYPE: CT angio head neck DATE OF EXAM: 12/04/2024 12:54 PM COMPARISON: None. CLINICAL INDICATION: Female, 69 years old with history of Vertigo, right-sided head pain, Vertigo, CP , Rt jaw pain. Stent placed 2 days ago, has another one scheduled in a week., TECHNIQUE: Axially acquired helical CT Angiogram of the Neck was obtained with and without contrast. Axial images are supplemented with coronal and sagittal MIP reconstructions. 3D reconstructions were also performed and were post-processed at an independent workstation. Estimated carotid stenosis was calculated using the NASCET criteria. Contrast CTA of the [place] was performed 3-D recons truction imaging obtained at a separate workstation. IV CONTRAST: with IV Contrast, patient injected with 65 ml mL of Isovue 370. (None if empty) CT DLP: 453.4 mGycm, Automated exposure control for dose reduction was used. FINDINGS: NECK: Right carotid system: Mild plaque is seen of the right common carotid artery. There is mild plaque a lso noted at the carotid bulb and proximal ICA. No significant diameter reduction. ECA is patent. Right vertebral artery appears unremarkable. Left carotid system: Mild plaque is seen of the left common carotid artery. There is mild plaque als o noted at the carotid bulb and proximal ICA. No significant diameter reduction. ECA is patent. Lef t vertebral artery appears unremarkable. BRAIN: Vertebrobasilar system as well as intracranial portions of the internal carotid arteries and their ma windy tributaries are patent. I do not see evidence for sizable aneurysm or vascular malformation. Pl ease note MRI provides greater sensitivity and specificity. Visualized brain appears grossly unremar kable. IMPRESSION: 1. No evidence for hemodynamically significant stenosis at the carotid bifurcations. No significant diameter reduction to account for the patient's symptoms. 2. No evidence for intracranial aneurysm or high-grade stenosis. [facility], , 12/04/2024 12:58 PM
[2024-12-04] MEDS ORDERED: NITROGLYCERIN SL TABS 0.4 MG TAB SUBLINGUAL PRN ×2 (14:03→16:20)
[2024-12-04] MEDS ORDERED: MECLIZINE 25 MG TAB PO PRN (14:04)
[2024-12-04] MEDS ORDERED: BACLOFEN 10 MG TAB PO PRN (16:20)
[2024-12-04] MEDS: ATORVASTATIN 80 MG TAB PO SCH (16:36)
[2024-12-04] MEDS: PATIENT'S OWN (Evolocumab [Repatha Sureclick] 140 MG/ML Each) SQ SCH (16:37)
[2024-12-04] MEDS: CLOPIDOGREL 75 MG TAB PO SCH (16:37)
[2024-12-04] MEDS: SODIUM CHLORIDE 0.9% 1,000 ML IV SCH (16:42)
[2024-12-04] MEDS: NITROGLYCERIN OINT 1 INCH/GM PACKET TOPICAL SCH (18:17)
[2024-12-04] MEDS: METOPROLOL TARTRATE 25 MG TAB PO SCH (20:38)
[2024-12-04] MEDS: SERTRALINE 100 MG TAB PO SCH (20:38)
[2024-12-05] MEDS ORDERED: ALPRAZolam 0.5 MG TAB PO PRN (07:04)
[2024-12-05] MEDS ORDERED: ALPRAZolam 0.25 MG TAB PO PRN (07:04)
[2024-12-05] MEDS ORDERED: HEPARIN SODIUM 1,000 UN/ML (10ML VL) IV PRN (07:04)
[2024-12-05] MEDS ORDERED: NITROGLYCERIN SL TABS 0.4 MG TAB SUBLINGUAL PRN ×2 (07:04→12:08)
[2024-12-05] MEDS: ASPIRIN 81 MG PO SCH (07:08)
[2024-12-05] MEDS: ASPIRIN 325 MG TAB PO STA (07:24)
[2024-12-05] MEDS: ATORVASTATIN 80 MG TAB PO STA (07:24)
[2024-12-05] MEDS: HEPARIN SOD,PORK IN 0.45% NACL 25,000 UNIT in 0.45% NACL 1 250ML.BAG IV SCH (07:25)
[2024-12-05] MEDS: HEPARIN SODIUM 1,000 UN/ML (10ML VL) IV ONE (07:36)
[2024-12-05 07:58] LABS: Basophils # (A) 0.06 10*3/uL (0.00-0.10); Basophils % (A) 0.8 %; Eosinophils # (A) 0.21 10*3/uL (0.04-0.35); Eosinophils % (A) 2.9 %; HCT 40.1 % (37.2-46.3); HGB 12.6 g/dL (12.0-15.0); Lymphocytes # (A) 1.60 10*3/uL (0.90-5.00); Lymphocytes % (A) 22.1 %; MCH 28.6 pg (27.0-32.0); MCHC 31.4 g/dL (32.0-37.0); MCV 90.9 fL (80.0-97.0); Monocytes # (A) 0.36 10*3/uL (0.20-1.00); Monocytes % (A) 5.0 %; Neutrophils # (A) 5.01 10*3/uL (1.80-7.70); Neutrophils % (A) 69.1 %; Platelet Count 200 10*3/uL (140-440); RBC 4.41 10*6/uL (4.10-5.20); RDW 13.5 % (11.5-14.5); WBC 7.25 10*3/uL (4.50-10.00)
[2024-12-05 07:59] LABS: Basophils # (A) 0.06 10*3/uL (0.00-0.10); Basophils % (A) 0.8 %; Eosinophils # (A) 0.24 10*3/uL (0.04-0.35); Eosinophils % (A) 3.3 %; HCT 39.7 % (37.2-46.3); HGB 12.6 g/dL (12.0-15.0); Lymphocytes # (A) 1.57 10*3/uL (0.90-5.00); Lymphocytes % (A) 21.7 %; MCH 28.8 pg (27.0-32.0); MCHC 31.7 g/dL (32.0-37.0); MCV 90.8 fL (80.0-97.0); Monocytes # (A) 0.37 10*3/uL (0.20-1.00); Monocytes % (A) 5.1 %; Neutrophils # (A) 4.98 10*3/uL (1.80-7.70); Neutrophils % (A) 68.8 %; Platelet Count 199 10*3/uL (140-440); RBC 4.37 10*6/uL (4.10-5.20); RDW 13.5 % (11.5-14.5); WBC 7.24 10*3/uL (4.50-10.00)
[2024-12-05 08:08] LABS: INR 0.9 (<1.2); Partial Thromboplastin Time 22.7 sec (22.0-30.0); Prothrombin Time 10.1 sec (10.0-12.5)
[2024-12-05 08:13] LABS: ALT 37 U/L (4-34); AST 27 U/L (14-36); African American GFR (CKD) >90 (>60 ml/min/1.73 sqM); Albumin 4.0 g/dL (3.5-5.0); Alkaline Phosphatase 107 U/L (38-126); Anion Gap 7 mmol/L; Blood Urea Nitrogen 24 mg/dL (7-17); Calcium 9.3 mg/dL (8.4-10.2); Carbon Dioxide 25 mmol/L (22-30); Chloride 111 mmol/L (98-107); Glucose 85 mg/dL (74-99); Non-African American GFR(CKD) 89 (>60 ml/min/1.73 sqM); Potassium 4.5 mmol/L (3.5-5.1); Sodium 143 mmol/L (137-145); Total Protein 6.1 g/dL (6.3-8.2)
[2024-12-05] MEDS: LOSARTAN 50 MG TAB PO SCH (08:23)
[2024-12-05] MEDS ORDERED: ENOXAPARIN 40 MG/0.4 ML SYRINGE SQ SCH (09:00)
[2024-12-05] MEDS ORDERED: ASPIRIN 325 MG TAB PO SCH (09:00)
--- NOTE | 2024-12-05 09:25 | P.CRDCN ---
History of Present Illness Consult date: 12/05/24 Reason for Consult (text): Chest pain, vertigo History of present illness: This is a 69-year-old female patient of Dr. Marie with past medical history of coronary artery disease, hypertension, dyslipidemia. Patient recently presented to [facility] with complaints of worsening dyspnea on exertion that had been worsening over the past year, sweats, dizziness. She states that she would have the symptoms with any activity. Then she was cleaning the stall in the barn and developed sweats and could not breathe and came in to [facility]. Her troponin was 6. Echocardiogram performed at [facility] revealed EF 50 to 55%, mild mitral regurgitation, mild tricuspid regurgitation, RVSP 23 mmHg. She had a recent MPI that showed ST segment changes but no abnormality on her nuclear scan. She underwent coronary angiography that showed calcified coronary arteries with significant disease involving the proximal RCA and the OM1. It was recommended that patient transferred to [facility] for angioplasty and stenting. On 12/01, Dr. Zaragoza performed successful stenting of the proximal RCA with plan to continue patient on aspirin and Plavix for 6 months in addition to aggressive coronary artery risk factor modification. She would be scheduled for staged stenting of the OM1 at a later time. Patient was pain-free at that morning and was discharged home in stable condition. Patient has returned to the emergency center. She states that she did feel better after stenting was done. She states she was fixing her [place] and the symptoms returned yesterday. So she had a combination of dizziness, shortness of breath and jaw pain. Jaw pain was located on the right side and went up into her head. She states she did not take nitroglycerin for the discomfort. She had a regularly scheduled appointment with Dr. Castro and he advised her to go into the emergency center for further evaluation. Blood pressure 143/79, heart rate 67, pulse ox 98% on room air. -EKG: Sinus rhythm with no acute ST-T wave changes. -Chest x-ray: No acute process -CT brain: No acute intracranial hemorrhage or midline shift. -CTA head and neck revealed no evidence of hemodynamically significant stenosis of the carotid bifurcations. No intracranial aneurysm or high-grade stenosis. -Laboratory studies: CBC unremarkable. BUN 24 creatinine 0.69, potassium 4.5. Troponin 0.103, 0.111, 0.09. -Home cardiac medications: Aspirin 81 mg daily, atorvastatin 80 mg daily, Plavix 75 mg daily, losartan 100 mg daily, Lopressor 25 mg twice daily, Nitrostat. Review Of Systems: At the time of my exam: CONSTITUTIONAL: Denies fever or chills. HEENT: Denies blurred vision, vision changes, or eye pain. Denies hemoptysis CARDIOVASCULAR: Denies chest pain. Denies orthopnea. Denies PND. Denies palpitations RESPIRATORY: Denies shortness of breath. Reports dyspnea on exertion with jaw pain and dizziness. GASTROINTESTINAL: Denies abdominal pain. Denies nausea or vomiting. HEMATOLOGIC: Denies bleeding disorders. GENITOURINARY: Denies any blood in urine. SKIN: Denies puritis. Denies rash. Physical examination: Gen: This is 69-year-old female in no acute distress VS: reviewed HEENT: Head is atraumatic, normocephalic. Pupils equal, round. Sclerae is anicteric. NECK: Supple. No JVD. LUNGS: Clear to auscultation. No wheezes or rhonchi. No intercostal retractions. HEART: Regular rate and rhythm. No murmur. ABDOMEN: Soft No tenderness. EXTREMITIES: No pedal edema. No calf tenderness. NEUROLOGICAL: Patient is awake, alert and oriented x3. Assessment: Possible NSTEMI Coronary artery disease status post stent to the proximal RCA with plan for staged stenting of the OM1, 12/01 Hypertension Dyslipidemia Plan: Resume patient's home cardiac medications Start patient on heparin drip Schedule patient for cardiac catheterization today N.p.o. No need to repeat echocardiogram Further recommendations to follow based upon clinical course Thank you kindly for this consultation. Nurse practitioner note has been reviewed, I agree with documented findings and plan of care. Patient was seen and examined. Past Medical History Past Medical History: GERD/Reflux, Hyperlipidemia, Hypertension, Osteoarthritis (OA) Additional Past Medical History / Comment(s): Bag around heart thick, treated with antibiotics for valve problem and ok now. Migraines. History of Any Multi-Drug Resistant Organisms: None Reported Past Surgical History: Hysterectomy, Orthopedic Surgery Additional Past Surgical History / Comment(s): Left finger surgery. Past Anesthesia/Blood Transfusion Reactions: No Reported Reaction Past Psychological History: No Psychological Hx Reported Smoking Status: Former smoker Past Alcohol Use History: None Reported Past Drug Use History: None Reported - Past Family History Father Family Medical History: Cancer Mother History Unknown: Yes Family Medical History: Unable to Obtain Medications and Allergies Home Medications Medication Instructions Recorded Confirmed Type Atorvastatin [Lipitor] 80 mg PO DAILY 12/01/24 12/04/24 History Baclofen 5 mg PO DAILY PRN 12/01/24 12/04/24 History Evolocumab [Repatha Sureclick] 140 mg SQ Q14D 12/01/24 12/04/24 History Sertraline [Zoloft] 200 mg PO HS 12/01/24 12/04/24 History Aspirin 81 mg PO DAILY tab 12/02/24 12/04/24 Rx Clopidogrel [Plavix] 75 mg PO DAILY #90 tab 12/02/24 12/04/24 Rx Losartan [Cozaar] 100 mg PO DAILY #90 tab 12/02/24 12/04/24 Rx Metoprolol Tartrate [Lopressor] 25 mg PO BID #180 tab 12/02/24 12/04/24 Rx Nitroglycerin Sl Tabs [Nitrostat] 0.4 mg SUBLINGUAL Q5M PRN #25 tab 12/02/24 12/04/24 Rx Allergies Allergy/AdvReac Type Severity Reaction Status Date / Time No Known Allergies Allergy Verified 12/04/24 16:12 Physical Exam Vitals: Vital Signs Temp Pulse Resp BP Pulse Ox 12/05/24 05:56 97.9 F 94 18 130/73 97 12/05/24 04:02 70 20 97 12/05/24 01:00 98.2 F 67 17 129/69 98 12/04/24 20:34 98.7 F 74 19 115/74 98 12/04/24 18:20 67 16 114/72 96 12/04/24 15:35 64 16 116/62 98 12/04/24 12:37 70 18 146/78 97 12/04/24 11:29 97.9 F 74 18 134/82 100 Intake and Output 12/04/24 12/04/24 12/05/24 14:59 22:59 06:59 Other: Weight 77.111 kg Results 12/05/24 07:28 12/05/24 07:28 Cardiac Enzymes 12/04/24 12/04/24 12/04/24 Range/Units 11:49 11:49 15:29 AST 41 H (14-36) U/L Troponin I 0.103 H* 0.111 H* (0.000-0.034) ng/mL 12/04/24 Range/Units 18:14 AST (14-36) U/L Troponin I 0.090 H* (0.000-0.034) ng/mL Coagulation 12/04/24 Range/Units 11:49 PT 10.4 (10.0-12.5) sec APTT 22.5 (22.0-30.0) sec CBC 12/04/24 Range/Units 11:49 WBC 7.00 (4.50-10.00) 10*3/uL RBC 4.44 (4.10-5.20) 10*6/uL Hgb 13.1 (12.0-15.0) g/dL Hct 38.9 (37.2-46.3) % Plt Count 219 (140-440) 10*3/uL Comprehensive Metabolic Panel 12/04/24 Range/Units 11:49 Sodium 142 (137-145) mmol/L Potassium 4.2 (3.5-5.1) mmol/L Chloride 108 H (98-107) mmol/L Carbon Dioxide 21 L (22-30) mmol/L BUN 32 H (7-17) mg/dL Creatinine 0.78 (0.52-1.04) mg/dL Glucose 92 (74-99) mg/dL Calcium 9.6 (8.4-10.2) mg/dL AST 41 H (14-36) U/L ALT 42 H (4-34) U/L Alkaline Phosphatase 109 (38-126) U/L Total Protein 6.6 (6.3-8.2) g/dL Albumin 4.4 (3.5-5.0) g/dL Current Medications Generic Name Dose Route Start Last Admin Trade Name Freq PRN Reason Stop Dose Admin Aspirin 81 mg 12/05/24 09:00 Aspirin 81 Mg PO DAILY [facility] Atorvastatin Calcium 80 mg 12/04/24 16:30 12/04/24 16:36 Atorvastatin 80 Mg Tab PO Not Given DAILY SONYA Baclofen 5 mg 12/04/24 16:20 Baclofen 10 Mg Tab PO DAILY PRN Migraine Headache Clopidogrel Bisulfate 75 mg 12/04/24 16:30 12/04/24 16:37 Clopidogrel 75 Mg Tab PO Not Given DAILY SONYA Enoxaparin Sodium 40 mg 12/05/24 09:00 Enoxaparin 40 Mg/0.4 Ml Syringe SQ DAILY [facility] Sodium Chloride 1,000 mls @ 75 mls/hr 12/04/24 16:30 12/05/24 06:00 Saline 0.9% IV 75 mls/hr .[id number] SONYA Administration Losartan Potassium 50 mg 12/05/24 09:00 Losartan 50 Mg Tab PO DAILY SONYA Meclizine HCl 25 mg 12/04/24 14:04 Meclizine 25 Mg Tab PO TID PRN Vertigo Metoprolol Tartrate 25 mg 12/04/24 21:00 12/04/24 20:38 Metoprolol Tartrate 25 Mg Tab PO 25 mg BID SONYA Administration Nitroglycerin 1 inch 12/04/24 18:00 12/05/24 06:00 Nitroglycerin Oint 1 Inch/Gm Packet TOPICAL 1 inch Q6HR SONYA Administration Nitroglycerin 0.4 mg 12/04/24 16:20 Nitroglycerin Sl Tabs 0.4 Mg Tab SUBLINGUAL Q5M PRN Chest Pain Patient's Own ( 140 mg 12/04/24 16:30 12/04/24 16:37 Evolocumab [Repatha SQ Not Given Sureclick] 140 Mg/Ml Q14D [facility] Each) Sertraline HCl 200 mg 12/04/24 21:00 12/04/24 20:38 Sertraline 100 Mg Tab PO 200 mg HS SONYA Administration Intake and Output 12/04/24 12/04/24 12/05/24 14:59 22:59 06:59 Other: Weight 77.111 kg Patient Weight 12/05/24 06:59 Weight 77.111 kg 12/04/24 11:49 12/04/24 11:49
--- NOTE | 2024-12-05 10:54 | P.HPIM ---
History of Present Illness H&P Date: 12/05/24 Chief Complaint: Dyspnea on exertion/jaw pain/vertigo HISTORY OF PRESENT ILLNESS: This is a 69-year-old female with a by patient with a previous medical history significant for hypertension and hypertensive heart vascular disease, mixed hyperlipidemia, migraine headache, spondylosis of the cervical spine, insomnia, remote tobacco use and dependence, patient presented to the emergency department initially [facility] last week with dyspnea on exer tion associated with left-sided chest pain that radiated to the left shoulder down to the left arm associated with significant shortness of breath with activity, patient had an EKG that did show some nonspecific changes, her cardiac enzymes were negative at that time, but because of her symptoms and her risk factors she was admitted to the hospital and underwent left heart catheterization that showed 85% stenosis of the RCA and another stenosis of the obtuse marginal branch 1, she was transported to [facility] and underwent PCI of the RCA by Dr. Zaragoza on 12/01/2024 and she is scheduled to go for staged angioplasty of the OM1 next week, patient patient came to my office yesterday for a follow-up appointment, she stated that she was cutting some rhubarb to make an rhubarb pie, and all of a sudden she felt extremely dizzy lightheaded, with increased jaw pain and increased shortness of breath, she was brought into my office with her significant other and immediately had a twelve- lead EKG did not show evidence of any acute ST elevation at this time, I did show poor progression in the anterior leads, and no Q waves, a EMS was called and the patient was brought into the emergency department at [facility] for evaluation, patient had twelve-lead EKG again did not show evidence of acute ST T wave changes, it did show poor R wave progression, cardiac enzymes are slightly elevated due to her prior angioplasty, there was no evidence of any non-ST elevation CO either, patient was started on heparin drip, as well as nitroglycerin paste, because of the vertigo she underwent CT angiography of the neck and the brain was negative patient was admitted to the hospital and she was seen in consultation by cardiology who recommended for left heart catheterization and possible angioplasty of the obtuse marginal branch #1 REVIEW OF SYSTEMS: Constitutional: No documented fever, no chills, no night sweats. No weight change. No weakness, fatigue or lethargy. No daytime sleepiness. EENT: No headache. No blurred vision or double vision, no loss of vision. No loss of Hearing, no ringing in the ears, no dizziness. No nasal drainage or congestion. No epistaxis. No sore throat. Lungs: Positive for shortness of breath, no cough, no sputum production. No wheezing. Reports dyspnea with activity. Cardiovascular: No chest pain, no lower extremity edema. No palpitations. No paroxysmal nocturnal dyspnea. No orthopnea. positive dizziness. No syncopal episodes. Abdominal: Reports abdominal pain. No nausea, vomiting. No diarrhea. No constipation. No bloody or tarry stools reports loss of appetite. Genitourinary: No dysuria, increased frequency, urgency. No urinary retention. Musculoskeletal: No myalgias. No muscle weakness, no gait dysfunction, no frequent falls. No back pain. No neck pain. Integumentary: No wounds, no lesions. No rash or pruritus. No unusual bruising. No change in hair or nails. Neurologic: No aphasia. No facial droop. No change in mentation. No head injury. No headache. No paralysis. No paresthesia. Psychiatric: No depression. No anxiety. No mood swings. Endocrine: No abnormal blood sugars. No weight change. PAST MEDICAL HISTORY: Hypertension and hypertensive cardiovascular disease. Mixed hyperlipidemia. Coronary artery disease of [place] arteries Migraine headaches. Spondylosis of the cervical spine. Insomnia. Anxiety. PAST SURGICAL HISTORY: Left heart catheterization with PCI of the RCA 12/01/2024 Tendon repair of the left index finger. EGD/colonoscopy 05/04/2023. Hysterectomy. SOCIAL HISTORY: Patient used to smoke in the past about a pack every day and she quit about 7 years ago, she does drink alcohol socially, she denies any drug use or abuse, she lives with her significant other. FAMILY HISTORY: Father at the age of 75 from colon cancer with mets to the liver, mother at the age of 88 from congestive heart failure, patient has 3 sisters 1 sister with colon cancer and the other 2 are fine, patient has 3 brothers 1 with a brain cancer the other 2 are fine patient has 2 daughters alive and well. PHYSICAL EXAMINATION: General: 69-year-old female laying down in bed in no apparent distress. HEENT: Head is atraumatic, normocephalic, pupils were equal round reactive to light and recommendation, extraocular muscle movement were intact, sclera nonicteric, conjunctivae were pale, mucous membranes of the mouth are somewhat dry. Neck: Supple, no JVP, normal carotid upstroke bilaterally, no lymphadenopathy. Chest: Decreased breath sounds at the bases, few rhonchi, no expiratory wheezes, no chest wall tenderness, no intercostal retractions. Heart: First heart sound is normal, second heart sounds normal there is no gallop or murmur no rubs or heaves. Abdomen: Soft, nontender, nondistended, positive bowel sounds. Extremities: There is no edema no calf tenderness DP +2 bilaterally. Neurologic examination: Patient is awake alert and oriented x3, cranial nerves II-12 appear grossly intact, muscle power were 5 out of 5 in upper extremities and 5 out of 5 in bilateral lower extremities, deep tendon reflexes normal bilaterally. ASSESSMENT AND PLAN: 1. vertigo/jaw pain pain in a patient with a prior history of coronary artery disease status post PCI of the RCA continue patient on aspirin 81 g once every day, Plavix 75 mg once every day, atorvastatin 80 mg once every day, she is to resume her Repatha 140 mg subcutaneously every 2 weeks, keep LDL cholesterol less than 50 over the time, continue nitroglycerin paste, continue patient on heparin drip for now, patient is scheduled for left heart catheterization later on today 2. Hypertension and hypertensive cardiovascular disease. Continue patient on metoprolol 25 mg orally twice every day, decrease losartan to 50 mg orally once every day, monitor the patient blood pressure very closely. 3. Mixed hyperlipidemia. Continue atorvastatin 80 mg once every day, Repatha 140 mg subcutaneously every 2 weeks keep LDL cholesterol less than 50. 4. History of migraine headaches avoid triptans for now. May use Nurtec or Ubrelvy as needed. 5. History of insomnia continue zolpidem 5 mg at bedtime as needed. 6. Spondylosis of the cervical spine. Continue baclofen as needed. 7. DVT prophylaxis continue heparin drip for now. 8. GI prophylaxis . Protonix 40 mg orally once every day 9. Admitted to inpatient. Estimated length of stay 2 midnights. 10. Full code. Past Medical History Past Medical History: GERD/Reflux, Hyperlipidemia, Hypertension, Osteoarthritis (OA) Additional Past Medical History / Comment(s): Bag around heart thick, treated with antibiotics for valve problem and ok now. Migraines. History of Any Multi-Drug Resistant Organisms: None Reported Past Surgical History: Hysterectomy, Orthopedic Surgery Additional Past Surgical History / Comment(s): Left finger surgery. Past Anesthesia/Blood Transfusion Reactions: No Reported Reaction Past Psychological History: No Psychological Hx Reported Smoking Status: Former smoker Past Alcohol Use History: None Reported Past Drug Use History: None Reported - Past Family History Father Family Medical History: Cancer Mother History Unknown: Yes Family Medical History: Unable to Obtain Medications and Allergies Home Medications Medication Instructions Recorded Confirmed Type Atorvastatin [Lipitor] 80 mg PO DAILY 12/01/24 12/04/24 History Baclofen 5 mg PO DAILY PRN 12/01/24 12/04/24 History Evolocumab [Repatha Sureclick] 140 mg SQ Q14D 12/01/24 12/04/24 History Sertraline [Zoloft] 200 mg PO HS 12/01/24 12/04/24 History Aspirin 81 mg PO DAILY tab 12/02/24 12/04/24 Rx Clopidogrel [Plavix] 75 mg PO DAILY #90 tab 12/02/24 12/04/24 Rx Losartan [Cozaar] 100 mg PO DAILY #90 tab 12/02/24 12/04/24 Rx Metoprolol Tartrate [Lopressor] 25 mg PO BID #180 tab 12/02/24 12/04/24 Rx Nitroglycerin Sl Tabs [Nitrostat] 0.4 mg SUBLINGUAL Q5M PRN #25 tab 12/02/24 12/04/24 Rx Allergies Allergy/AdvReac Type Severity Reaction Status Date / Time No Known Allergies Allergy Verified 12/04/24 16:12 Physical Exam Vitals: Vital Signs Temp Pulse Resp BP Pulse Ox 12/05/24 10:00 56 L 16 136/79 98 12/05/24 09:00 60 16 147/66 98 12/05/24 07:40 67 20 143/79 98 12/05/24 05:56 97.9 F 94 18 130/73 97 12/05/24 04:02 70 20 97 12/05/24 01:00 98.2 F 67 17 129/69 98 12/04/24 20:34 98.7 F 74 19 115/74 98 12/04/24 18:20 67 16 114/72 96 12/04/24 15:35 64 16 116/62 98 12/04/24 12:37 70 18 146/78 97 12/04/24 11:29 97.9 F 74 18 134/82 100 Results CBC & Chem 7: 12/05/24 07:28 12/05/24 07:28 Labs: Abnormal Lab Results - Last 24 Hours (Table) 12/04/24 12/04/24 12/04/24 Range/Units 11:49 11:49 15:29 MCHC (32.0-37.0) g/dL Chloride 108 H (98-107) mmol/L Carbon Dioxide 21 L (22-30) mmol/L BUN 32 H (7-17) mg/dL AST 41 H (14-36) U/L ALT 42 H (4-34) U/L Troponin I 0.103 H* 0.111 H* (0.000-0.034) ng/mL Total Protein (6.3-8.2) g/dL 12/04/24 12/05/24 12/05/24 Range/Units 18:14 07:28 07:28 MCHC 31.7 L (32.0-37.0) g/dL Chloride 111 H (98-107) mmol/L Carbon Dioxide (22-30) mmol/L BUN 24 H (7-17) mg/dL AST (14-36) U/L ALT 37 H (4-34) U/L Troponin I 0.090 H* (0.000-0.034) ng/mL Total Protein 6.1 L (6.3-8.2) g/dL 12/05/24 Range/Units 07:28 MCHC 31.4 L (32.0-37.0) g/dL Chloride (98-107) mmol/L Carbon Dioxide (22-30) mmol/L BUN (7-17) mg/dL AST (14-36) U/L ALT (4-34) U/L Troponin I (0.000-0.034) ng/mL Total Protein (6.3-8.2) g/dL
[2024-12-05] MEDS: MIDAZOLAM 2 MG/2 ML VIAL IVP ONE (11:05)
[2024-12-05] MEDS: fentaNYL (PF) 50 MCG/1 ML VIAL IVP ONE (11:05)
[2024-12-05] MEDS: HEPARIN SODIUM,PORCINE 10,000 UNIT in SODIUM CHLORIDE 0.9% 1,000 ML IRRIGATION PRN (11:06)
[2024-12-05] MEDS: SODIUM CHLORIDE 0.9% 1,000 ML IV ONE (11:06)
[2024-12-05] MEDS: HEPARIN SODIUM,PORCINE (1 ML) 2,500 UNIT in SODIUM CHLORIDE 0.9% 250 ML IRRIGATION PRN (11:06)
[2024-12-05] MEDS: LIDOCAINE 1% INJ 10MG/ML (20 ML MDV) SQ ONE (11:07)
[2024-12-05] MEDS: VERAPAMIL SYRINGE (5 MG/10 ML) INTRAARTER ONE (11:09)
[2024-12-05] MEDS: HEPARIN SODIUM 1,000 UN/ML (10ML VL) IVP ONE (11:11)
[2024-12-05] MEDS: NITROGLYCERIN 1000MCG/10ML SYRINGE INTRACORON ONE (11:22)
[2024-12-05] MEDS: IOPAMIDOL-370 100ML BTL INJ ONE ×2 (11:23→12:04)
[2024-12-05] MEDS ORDERED: MAG HYDROX/AL HYDROX/SIMETH 30 ML CUP PO PRN (12:08)
[2024-12-05] MEDS ORDERED: ZOLPIDEM 5 MG TAB PO PRN (12:08)
[2024-12-05] MEDS ORDERED: ATROPINE SULFATE 0.1 MG/ML 10ML SYRINGE IV PRN (12:08)
[2024-12-05] MEDS ORDERED: RX INFO: IV CONTRAST WAS GIVEN 1 EACH MISC MISCELLANE PRN (12:08)
--- NOTE | 2024-12-05 12:19 | P.CARDCATH ---
Date of Procedure: 12/05/24 Description of Procedure: Cardiac Catheterization: The patient is a 69-year-old female with a history of hypertension hyperlipidemia who recently presented with symptoms of chest comfort, underwent coronary angiography was found to have a calcified right coronary artery with significant obstructive disease proximally as well as obstructive disease in the left circumflex and the first OM. She underwent stenting of the RCA and was scheduled to undergo staged percutaneous revascularization of the OM but p resented with symptoms of chest and jaw discomfort. Recommendations were made regarding cardiac catheterization, the risks and the complications were discussed with the patient who is in full understanding and agreement. Procedure Description: Patient was brought to assistant laboratory director in fasting semi-sedated state after receiving Fentanyl and Benadryl achieiving moderate conscious sedated state. Using Xyl ocaine Anesthesia and modified Seldinger technique, a 6-[place] sheath was introduced in the right radial artery . Subsequently, selective coronary angiography was performed using a 5-[place] 3.5 bend right Tawana catheter and 6 [place] CLS 3.5 guiding catheter. Multiple views of the coronary artery including hemiaxial views were obtained. The right Tawana catheter was used to cross the aortic valve and LVEDP was calculated. PCI: Using the CLS 3.5 guiding catheter and after cannulating the left main a 0.014 BMW J-wire was positioned in the distal OM subsequently a 2.25 x 12 mm trek balloon was advanced and 2 inflations at 8 taqueria were done. After removing the balloon a [employer] eye IVUS catheter was introduced and imaging was performed and revealed a noncalcified lesion with a distal lumen measuring 2.25 to 2.5 mm and proximally 3.5 to 4.0 mm. After removing the balloon a 2.25 x 38 mm Xience Skypoint stent was advanced and deployed at 16 taqueria and after removing the balloon a 3.5 x 15 mm Xience Skypoint stent was deployed proximally at 16 taqueria. After removing the balloon repeat IVUS imaging was performed and revealed mild under deployment of the stent and subsequently a 2.5 x 20 mm NC trek balloon was advanced in the distal stent and inflations were done at 12 taqueria and after removing the balloon a 3.5 x 12 mm NC trek balloon was advanced in the proximal stent and 1 inflation at 12 taqueria was done. After the last inflation 3.25 x 15 mm Xience Skypoint stent was deployed in the segment between both stents at 16 taqueria and postdilated 5 x 12 mm NC trek. After the last inflation the wire was removed images were obtained and revealed stable successful stenting. Following that, catheter and sheath were removed. Hemostasis was obtained with deployment of vascular band . There was no immediate complication. Patient was returned to room in stable condition. Of note, the patient received a total of 7000 units of intravenous heparin as well as intra-arterial verapamil. She was continued on clopidogrel. Her ACT was monitored. She had no EKG changes or chest discomfort with the inflations. Findings: Left main: This is a short size vessel bifurcating to left circumflex and left anterior sending artery, left main has no obstructive disease. LAD: This is a large size vessel, reaching to the apex, tapers down distally, gives rise to 2 small diagonal branch. The LAD and its branches have no evidence of high-grade stenosis Left circumflex: This is a nondominant vessel, giving rise to a large obtuse marginal branch. The proximal left circumflex has a 60% plaque in the mid segment and in the OM there is a long segment of disease up to 95%. RCA: This is a large dominant vessel, bifurcating into PDA and PLV. The stented segment in the proximal RCA is patent there is no evidence of in-stent thrombosis. The distal vessel has intimal disease of 40 to 50%. Left Ventriculogram: Not performed Hemodynamics: There was no gradient across the aortic valve, LVEDP was 10-12 mmHg Conclusion: 1. Severe stenosis in the proximal left circumflex and the OM1 2. Patent stent in the right coronary artery with moderate disease distally 3. No significant obstructive disease in the LAD 4. Successful stenting of the proximal left circumflex and the OM1 with reduction of stenosis from 95% to less than 5% with IVUS imaging Recommendations: The patient will continue on aspirin and clopidogrel without any interruption for 6 months in addition to aggressive coronary risks modifications, attempting to maintain LDL below 70 mg/dL. The findings and the recommendations were discussed with the patient and the family and they were in full understanding and agreement. Duration of sedation is 54 minutes.
[2024-12-05 13:51] LABS: Cholesterol 68.00 mg/dL (0.00-200.00); HDL Cholesterol 37.50 mg/dL (40.00-60.00); LDL Cholesterol,Calculated 13.0 mg/dL (0.0-131.0); Triglycerides 87.70 mg/dL (0.00-149.00); VLDL Calculation 17.54 mg/dL (5.00-40.00)
[2024-12-05 13:58] LABS: Glucose,Whole Blood 119 mg/dL (70-110)
[2024-12-05] MEDS: SODIUM CHLORIDE 0.9% 1,000 ML in EMPTY BAG 1 BAG IV SCH (14:10)
[2024-12-05] MEDS: MORPHINE SULFATE 4 MG/ML SYRINGE IVP STA (14:26)
[2024-12-05] MEDS: MORPHINE SULFATE 4 MG/ML SYRINGE IVP PRN (16:20)
[2024-12-06 05:44] VITALS: RESP 18
[2024-12-06 06:24] LABS: HCT 35.4 % (37.2-46.3); HGB 11.3 g/dL (12.0-15.0); MCH 29.0 pg (27.0-32.0); MCHC 31.9 g/dL (32.0-37.0); MCV 90.8 fL (80.0-97.0); Platelet Count 199 10*3/uL (140-440); RBC 3.90 10*6/uL (4.10-5.20); RDW 13.5 % (11.5-14.5); WBC 6.78 10*3/uL (4.50-10.00)
[2024-12-06 06:51] LABS: African American GFR (CKD) >90 (>60 ml/min/1.73 sqM); Anion Gap 9 mmol/L; Blood Urea Nitrogen 17 mg/dL (7-17); Calcium 9.1 mg/dL (8.4-10.2); Carbon Dioxide 24 mmol/L (22-30); Chloride 108 mmol/L (98-107); Glucose 93 mg/dL (74-99); Non-African American GFR(CKD) >90 (>60 ml/min/1.73 sqM); Potassium 4.3 mmol/L (3.5-5.1); Sodium 141 mmol/L (137-145)
[2024-12-06 10:16] VITALS: BP 123/63; PULSE 76; TEMP 98
--- NOTE | 2024-12-06 10:40 | P.PN ---
Subjective Progress Note Date: 12/06/24 Reason for Consult (text): Chest pain, vertigo History of present illness: This is a 69-year-old female patient of Dr. Maire with past medical history of coronary artery disease, hypertension, dyslipidemia. Patient recently presented to [facility] with complaints of worsening dyspnea on exertion that had been worsening over the past year, sweats, dizziness. She states that she would have the symptoms with any activity. Then she was cleaning the stall in the barn and developed sweats and could not breathe and came in to [facility]. Her troponin was 6. Echocardiogram performed at [facility] revealed EF 50 to 55%, mild mitral regurgitation, mild tricuspid regurgitation, RVSP 23 mmHg. She had a recent MPI that showed ST segment changes but no abnormality on her nuclear scan. She underwent coronary angiography that showed calcified coronary arteries with significant disease involving the pro ximal RCA and the OM1. It was recommended that patient transferred to [facility] for angioplasty and stenting. On 12/01, Dr. Zaragoza performed successful stenting of the proximal RCA with plan to continue patient on aspirin and Plavix for 6 months in addition to aggressive coronary artery risk factor modification. She would be scheduled for staged stenting of the OM1 at a later time. Patient was pain-free at that morning and was discharged home in stable condition. Patient has returned to the emergency center. She states that she did feel better after stenting was done. She states she was fixing her oglesby and the symptoms returned yesterday. So she had a combination of dizziness, shortness of breath and jaw pain. Jaw pain was located on the right side and went up into her head. She states she did not take nitroglycerin for the discomfort. She had a regularly scheduled appointment with Dr. Castro and he advised her to go into the emergency center for further evaluation. Blood pressure 143/79, heart rate 67, pulse ox 98% on room air. -EKG: Sinus rhythm with no acute ST-T wave changes. -Chest x-ray: No acute process -CT brain: No acute intracranial hemorrhage or midline shift. -CTA head and neck revealed no evidence of hemodynamically significant stenosis of the carotid bifurcations. No intracranial aneurysm or high-grade stenosis. -Laboratory studies: CBC unremarkable. BUN 24 creatinine 0.69, potassium 4.5. Troponin 0.103, 0.111, 0.09. -Home cardiac medications: Aspirin 81 mg daily, atorvastatin 80 mg daily, Plavix 75 mg daily, losartan 100 mg daily, Lopressor 25 mg twice daily, Nitrostat. 12/06/2024 Patient seen and examined on the cardiac stepdown unit. Yesterday, patient underwent cardiac catheterization with Dr. Zaragoza which revealed severe stenosis in the proximal left circumflex and the OM1, patent stent in the right coronary artery with moderate disease distally, no significant obstructive disease in the LAD. Patient underwent successful stenting of the proximal left circumflex and OM1. Patient has not been out of bed this morning. She denies chest pain no shortness of breath. She complains of her right arm feeling sore. No bleeding or hematoma at the right radial site. Blood pressure 104/56, heart rate 64, pulse ox 95% on room air. Repeat blood work reveals BUN 17 creatinine 0.66, potassium 4.3, hemoglobin 11.3. Physical examination: Gen: This is 69-year-old female in no acute distress VS: reviewed HEENT: Head is atraumatic, normocephalic. Pupils equal, round. Sclerae is anicteric. NECK: Supple. No JVD. LUNGS: Clear to auscultation. No wheezes or rhonchi. No intercostal retractions. HEART: Regular rate and rhythm. No murmur. ABDOMEN: Soft No tenderness. EXTREMITIES: No pedal edema. No calf tenderness. NEUROLOGICAL: Patient is awake, alert and oriented x3. Assessment: Possible NSTEMI Coronary artery disease status post stent to the proximal RCA with plan for staged stenting of the OM1, 12/01 Hypertension Dyslipidemia Plan: Continue cardiac medications: Aspirin, atorvastatin, Plavix, losartan, Lopressor, Nitrostat. Patient to be up and ambulate in the hallway and if asymptomatic, she is cleared for discharge from cardiology perspective. Patient will follow-up with Dr. Zaragoza in 1 week. Nurse practitioner note has been reviewed, I agree with documented findings and plan of care. Patient was seen and examined. Objective - Vital Signs Vital signs: Vital Signs Temp 98.0 F 12/06/24 02:00 Pulse 64 12/06/24 04:00 Resp 18 12/06/24 04:00 BP 104/56 12/06/24 04:00 Pulse Ox 95 12/06/24 04:00 FiO2 Intake & Output 07/04/25 07/05/25 07/05/25 18:59 06:59 18:59 Intake Total 894 548 Balance 894 548 Weight 77.111 kg 77.2 kg Intake: IV 654 308 Sodium Chloride 0.9% 1, 154 308 000 ml In Empty Bag 1 bag @ 1 ML/KG/HR 77.111 mls/ hr IV .[id number] SONYA Rx#: [id number] Oral 240 240 Other: # Voids 1 - Labs CBC & Chem 7: 12/06/24 06:00 12/06/24 06:00 Labs: Abnormal Lab Results - Last 24 Hours (Table) 12/05/24 12/05/24 12/05/24 Range/Units 07:28 07:28 07:28 RBC (4.10-5.20) 10*6/uL Hgb (12.0-15.0) g/dL Hct (37.2-46.3) % MCHC 31.7 L 31.4 L (32.0-37.0) g/dL Chloride 111 H (98-107) mmol/L BUN 24 H (7-17) mg/dL POC Glucose (mg/dL) (70-110) mg/dL ALT 37 H (4-34) U/L Total Protein 6.1 L (6.3-8.2) g/dL HDL Cholesterol 37.50 L (40.00-60.00) mg/dL 12/05/24 12/06/24 12/06/24 Range/Units 13:56 06:00 06:00 RBC 3.90 L (4.10-5.20) 10*6/uL Hgb 11.3 L (12.0-15.0) g/dL Hct 35.4 L (37.2-46.3) % MCHC 31.9 L (32.0-37.0) g/dL Chloride 108 H (98-107) mmol/L BUN (7-17) mg/dL POC Glucose (mg/dL) 119 H (70-110) mg/dL ALT (4-34) U/L Total Protein (6.3-8.2) g/dL HDL Cholesterol (40.00-60.00) mg/dL
--- NOTE | 2024-12-06 11:12 | P.DS ---
Providers Date of admission: 12/04/24 14:05 Expected date of discharge: 12/06/24 Attending physician: Aleta Castro Consults: 12/04/24 14:04 Consult Physician Urgent Consulting Provider: Nilton Castañeda Consult Reason/Comments: Chest pain, vertigo Do you want consulting provider notified?: Yes 12/05/24 12:08 Consult Physician Routine Consulting Provider: Nilton Castañeda Consult Reason/Comments: Post Interventional Patient Do you want consulting provider notified?: Already Contacted Primary care physician: Aleta Castro [facility] Course: HISTORY OF PRESENT ILLNESS: This is a 69-year-old female with a by patient with a previous medical history significant for hypertension and hypertensive heart vascular disease, mixed hyperlipidemia, migraine headache, spondylosis of the cervical spine, insomnia, remote tobacco use and dependence, patient presented to the emergency department initially [facility] last week with dyspnea on exertio n associated with left-sided chest pain that radiated to the left shoulder down to the left arm associated with significant shortness of breath with activity, patient had an EKG that did show some nonspecific changes, her cardiac enzymes were negative at that time, but because of her symptoms and her risk factors she was admitted to the hospital and underwent left heart catheterization that showed 85% stenosis of the RCA and another stenosis of the obtuse marginal branch 1, she was transported to [facility] and underwent PCI of the RCA by Dr. Zaragoza on 12/01/2024 and she is scheduled to go for staged angioplasty of the OM1 next week, patient patient came to my office yesterday for a follow-up appointment, she stated that she was cutting some rhubarb to make an rhubarb pie, and all of a sudden she felt extremely dizzy lightheaded, with increased jaw pain and increased shortness of breath, she was brought into my office with her significant other and immediately had a twelve-lead EKG did not show evidence of any acute ST elevation at this time, I did show poor progression in the anterior leads, and no Q waves, a EMS was called and the patient was brought into the emergency department at [facility] for evaluation, patient had twelve-lead EKG again did not show evidence of acute ST T wave changes, it did show poor R wave progression, cardiac enzymes are sl ightly elevated due to her prior angioplasty, there was no evidence of any non- ST elevation CO either, patient was started on heparin drip, as well as nitroglycerin paste, because of the vertigo she underwent CT angiography of the neck and the brain was negative patient was admitted to the hospital and she was seen in consultation by cardiology who recommended for left heart catheterization and possible angioplasty of the obtuse marginal branch #1 12/06: Patient is sitting up in bed in no apparent distress, she has no chest pain, shortness of breath, she is ambulating very well, she denies any unusual symptoms at this time, her blood pressures are very stable, her laboratory evaluations are stable, she patient underwent PCI of the proximal LCx and obtuse marginal branch #1, continue patient on aspirin 81 mg once every day, Plavix 75 mg once every day, continue aggressive risk factor modification, continue patient also on atorvastatin 80 mg orally once every day, Repatha 140 mg subcutaneous every 2 weeks, follow-up with the patient very closely, I will see the patient in the office next week, she will follow-up with cardiology in the next 1 or 2 weeks Discharge diagnoses: 1. vertigo/jaw pain pain in a patient with a prior history of coronary artery disease status post PCI of the RCA and the proximal LCx and obtuse marginal branch #1. 2. Hypertension and hypertensive cardiovascular disease. 3. Mixed hyperlipidemia. 4. History of migraine headaches avoid triptans for now. 5. History of insomnia 6. Spondylosis of the cervical spine. Patient Condition at Discharge: Stable Plan - Discharge Summary Discharge Rx Participant: No New Discharge Prescriptions: Continue Sertraline [Zoloft] 200 mg PO HS Evolocumab [Repatha Sureclick] 140 mg SQ Q14D Baclofen 5 mg PO DAILY PRN PRN Reason: Migraine Headache Losartan [Cozaar] 100 mg PO DAILY #90 tab Nitroglycerin Sl Tabs [Nitrostat] 0.4 mg SUBLINGUAL Q5M PRN #25 tab PRN Reason: Chest Pain Clopidogrel [Plavix] 75 mg PO DAILY #90 tab Atorvastatin [Lipitor] 80 mg PO DAILY Aspirin 81 mg PO DAILY tab Metoprolol Tartrate [Lopressor] 25 mg PO BID #180 tab Discharge Medication List Atorvastatin [Lipitor] 80 mg PO DAILY 12/01/24 [History] Baclofen 5 mg PO DAILY PRN 12/01/24 [History] Evolocumab [Repatha Sureclick] 140 mg SQ Q14D 12/01/24 [History] Sertraline [Zoloft] 200 mg PO HS 12/01/24 [History] Aspirin 81 mg PO DAILY tab 12/02/24 [Rx] Clopidogrel [Plavix] 75 mg PO DAILY #90 tab 12/02/24 [Rx] Losartan [Cozaar] 100 mg PO DAILY #90 tab 12/02/24 [Rx] Metoprolol Tartrate [Lopressor] 25 mg PO BID #180 tab 12/02/24 [Rx] Nitroglycerin Sl Tabs [Nitrostat] 0.4 mg SUBLINGUAL Q5M PRN #25 tab 12/02/24 [Rx] Follow up Appointment(s)/Referral(s): Mayra Zaragoza MD [STAFF PHYSICIAN] - 1 Week Aleta Castro MD [Primary Care Provider] - 1 Week
== END 2024-12-06 11:54 | disposition home or self-care (01) ==
LOC: EC 11:27 → 3SCARD 14:05 → 2SICU 12-05 13:39 → 3SCARD 12-05 17:08
PROVIDERS: ADMIT Internal Medicine; ATTEND Internal Medicine
DX: I25.10 Atherosclerotic heart disease of native coronary artery without angina pectoris (principal); I11.9 Hypertensive heart disease without heart failure; E78.2 Mixed hyperlipidemia; G43.909 Migraine, unspecified, not intractable, without status migrainosus; M47.812 Spondylosis without myelopathy or radiculopathy, cervical region; G47.00 Insomnia, unspecified; F41.9 Anxiety disorder, unspecified; Z79.02 Long term (current) use of antithrombotics/antiplatelets; Z79.82 Long term (current) use of aspirin; Z79.899 Other long term (current) drug therapy; Z87.891 Personal history of nicotine dependence; Z95.5 Presence of coronary angioplasty implant and graft
CPT/HCPCS: 96366 ×3; 96361; 96365; 96375; 99285; 36415; 93005; 93458; 80061; 80053 ×2; 80048; 83735; 84484; 85025 ×2; 85027; 85610 ×2; 85730 ×2; 71046; 70496; 70450; 70498; G0378 ×4; C9600; C9601; C1769 ×3; C1887; C1894; C1725 ×3; C1753; C1874 ×3; J2250; J2270; J1644 ×4; J3360; J2003; Q9967 ×2; J3010; J2305

== ENCOUNTER → 2025-01-01 | Outpatient (CLI) | payer MEDICARE ==
--- NOTE | 2025-01-01 14:15 | XR ---
EXAMINATION TYPE: XR chest 2V DATE OF EXAM: 01/01/2025 2:10 PM COMPARISON: Chest radiographs from 12/04/2024 TECHNIQUE: XR chest 2V Frontal and lateral views of the chest. CLINICAL INDICATION:Female, 69 years old with history of R06.02 SOB; FINDINGS: Lungs/Pleura: There is no evidence of pleural effusion, focal consolidation, or pneumothorax. Pulmonary vascularity: Unremarkable. Heart/mediastinum: Cardiomediastinal silhouette is unremarkable. Musculoskeletal: No acute osseous pathology. IMPRESSION: No acute cardiopulmonary disease/process. [facility] Cole Demarco, , 01/01/2025 2:12 PM
[2025-01-01 19:07] LABS: Basophils # (A) 0.05 X 10*3/uL (0.00-0.10); Basophils % (A) 0.8 %; Eosinophils # (A) 0.18 X 10*3/uL (0.04-0.35); Eosinophils % (A) 2.8 %; HCT 37.7 % (37.2-46.3); HGB 12.3 g/dL (12.0-15.0); Immature Grans, Automated 0.20 %; Lymphocytes # (A) 1.63 X 10*3/uL (0.90-5.00); Lymphocytes % (A) 25.0 %; MCH 29.1 pg (27.0-32.0); MCHC 32.6 g/dL (32.0-37.0); MCV 89.1 FL (80.0-97.0); Monocytes # (A) 0.39 X 10*3/uL (0.20-1.00); Monocytes % (A) 6.0 %; NRBC Per 100 WBC 0 X 10*3/uL (0.00-0.01); Neutrophils # (A) 4.26 X 10*3/uL (1.80-7.70); Neutrophils % (A) 65.2 %; Platelet Count 215 X 10*3/uL (140-440); RBC 4.23 X 10*6/uL (4.10-5.20); RDW 13.3 % (11.5-14.5); WBC 6.52 X 10*3/uL (4.50-10.00)
[2025-01-01 19:38] LABS: ALT 27 U/L (8-44); AST 23 U/L (13-35); Albumin 4.6 g/dL (3.8-4.9); Albumin/Globulin Ratio 3.07 Ratio (1.60-3.17); Alkaline Phosphatase 133 U/L (41-126); Anion Gap 10.30 mmol/L (4.00-12.00); BUN/Creat Ratio 28.62 Ratio (12.00-20.00); Blood Urea Nitrogen 22.9 mg/dL (9.0-27.0); Calcium 9.0 mg/dL (8.7-10.3); Carbon Dioxide 25.7 mmol/L (21.6-31.8); Chloride 108 mmol/L (96-109); Globulin 1.5 g/dL (1.6-3.3); Glucose 96 mg/dL (70-110); Potassium 3.9 mmol/L (3.5-5.5); Sodium 144 mmol/L (135-145); Total Protein 6.1 g/dL (6.2-8.2)
[2025-01-01 19:39] LABS: NT-Pro-B-Type Natriuretic Pept 278 pg/mL (0-125)
== END | disposition home or self-care (01) ==
LOC: LABWHC1 13:49
DX: R06.02 Shortness of breath (principal)
CPT/HCPCS: 36415; 71046; 80053; 83880; 85025; 85379